=== PATIENT | female | born 1975 | race Caucasian/White ===

== ENCOUNTER 2020-04-30 10:45 | Outpatient (REF) | payer OTHER, SELFPAY ==
[2020-04-30 13:31] LABS: Glucose Urine UA NEG (NEG); Leukocyte Esterase Urine NEG (NEG); Nitrite Urine NEG (NEG); PH 5.5 (5.0-8.0); Specific Gravity - Urine >= 1.030 (1.005-1.025); Urine Blood NEG (NEG); Urine Ketones NEG (NEG); Urine Protein NEG (NEG-TRACE)
[2020-04-30 13:36] LABS: Appearance Urine HAZY; Color Urine YELLOW
[2020-04-30 14:39] LABS: Alanine Aminotransferase 23 U/L (0-31); Albumin Level 3.9 g/dL (3.5-5.0); Alkaline Phosphatase 73 U/L (39-117); Anion Gap 14 (12-20); Aspartate Amino Transferase 20 U/L (5-31); Bilirubin Total 0.5 mg/dL (0.0-1.0); Blood Urea Nitrogen 11 mg/dL (9-16); Calcium 8.7 mg/dL (8.4-10.2); Carbon Dioxide 26 mmol/L (22-29); Chloride 105 mmol/L (96-108); Cholesterol 173 mg/dL; Estimated Glomerular Filt Rate > 60; Glucose Fasting 112 mg/dL (60-99); HDL Cholesterol 43 mg/dL; LDL Cholesterol Calculated 105 mg/dl; Potassium 4.6 mmol/l (3.3-5.1); Sodium 140 mmol/L (135-145); Total Protein 7.5 g/dL (6.5-8.0); Triglycerides 129 mg/dL
[2020-04-30 15:42] LABS: TSH reflex Free T4 1.37 mIU/mL (0.32-4.0)
== END 2020-04-30 10:46 | disposition home or self-care (01) ==
LOC: HO.WFDLDS 10:45
PROVIDERS: Visit Provider Family Medicine
DX: M54.9 Dorsalgia, unspecified (principal); Z00.00 Encounter for general adult medical examination without abnormal findings
CPT/HCPCS: 80053; 80061; 81003; 84443

== ENCOUNTER 2024-04-27 09:13 | Outpatient (AMB) | payer OTHER, SELFPAY ==
--- NOTE | 2024-04-27 09:41 | MHC.PC.OV ---
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 Hx of diabetes. She is on metformin 500mg b.i.d. A1c today 7.9%. Continues taking meloxicam, sertraline, metformin. Has not had an eye exam in about 2 years. Does have an qi specialist. Notes knee pain. Uses meloxicam daily. Has seen orthopedics about a year ago. Reports yeast infection of skin, excess dandruff. Reports recurrent ear infections. HPI Comments History of Present Illness Details Documentation assistance for Jorge Alberto Condon MD, was provided by Misael Monique, Billing Services Manager on 04/27/2024 at 10:45 AM EST. I, Dr. Condon, have read, observed, and verified documentation. FOR[facility]LY [facility], [facility] Surgical History History of ear surgery Family History Mother Breast cancer Gastrointestinal complaints Social History Household Members: Family Housing: House Alcohol intake: never Patient Tobacco Use Status: Never used Tobacco Questionnaire PHQ-9 Over the last 2 weeks, how often have you been bothered by any of the following problems? 1. Little interest or pleasure in doing things: not at all 2. Feeling down, depressed, or hopeless: several days 3. Trouble falling or staying asleep, or sleeping too much: nearly every day 4. Feeling tired or having little energy: nearly every day 5. Poor appetite or overeating: nearly every day 6. Feeling bad about yourself - or that you are a failure or have let yourself or your family down: several days 7. Trouble concentrating on things, such as reading the newspaper or watching television: not at all 8. Moving or speaking so slowly that other people could have noticed. Or the opposite - being so fidgety or restless that you have been moving around a lot more than usual: not at all 9. Thoughts that you would be better off or of hurting yourself in some way: not at all Total score: 11 Source: Developed by Drs. Nate Joseph, Pao Hewitt, Anatoliy Nash and colleagues, with an educational vale from [employer]. Thrive Questionnaire Date Thrive assessed: 04/24/24 I am a: Patient What is your living situation today?: I have a steady place to live Within the past 12 months, did the food you bought not last and you didn't have the money to get more?: Never true Within the past 12 months, did you worry whether your food would run out before you got money to buy more?: Never true Do you have trouble paying for medicines?: No Do you have trouble getting transportation to medical appointments?: No Do you have trouble paying your heating and electricity bill?: Yes Do you have trouble taking care of your child, family member or friend?: No Do you have trouble with day-to-day activities such as bathing, preparing meals, shopping, managing finances, etc.?: No Are you currently unemployed and looking for a job?: Yes Are you interested in more education?: No Please select the resources that you would like help with: None Currently or been in a relationship where the following occur: No concerns reported THRIVE Score: 1 AUDIT C Alcohol Use Questionnaire (AUDIT-C) 1. How often do you have a drink containing alcohol?: Never Total Score: 0 JANIS-7 AMB Questionnaire JANIS-7 Date JANIS - 7 assessed: 08/20/21 Feeling nervous, anxious, or on edge: 1 = Several days Not being able to stop or control worryin = Several days Worrying too much about different things: 1 = Several days Trouble relaxin = Several days Being so restless that it is hard to sit still: 0 = Not at all Becoming easily annoyed or irritable: 3 = Nearly every day Feeling afraid as if something awful might happen: 0 = Not at all Total JANIS-7 score (0-4 normal; 5-9 mild; 10-14 moderate; 15-21 severe): 7 Source: Developed by Drs. Nate Joseph, Pao Hewitt, Anatoliy Nash and colleagues, with an educational vale from [employer]. Review of Systems Const Denies chills, Denies fatigue, Denies fever(s), Denies headache(s) and Denies weakness ENT Denies dizziness and Denies headache(s) Card Denies dyspnea Resp Denies cough, Denies dyspnea, Denies wheezing and Denies other (shortness of breath) Musc Denies numbness and Denies tingling Neuro Denies dizziness, Denies headache(s), Denies numbness, Denies tingling and Denies weakness Psych Denies anxiety and Denies depression Endo Denies fatigue Aller/Immun Denies wheezing Physical exam (Primary Care) Vital Signs: Last Vital Signs Temp 98.3 F 04/27/24 09:47 Pulse 89 04/27/24 09:47 Resp 14 04/27/24 09:47 BP 106/70 04/27/24 09:47 Pulse Ox 94 04/27/24 09:47 Oxygen Delivery Method Room Air 04/27/24 09:47 BMI result Body Mass Index 45.9 Tobacco/Smoking Status: Tobacco use Status Patient Tobacco Use Status Never used Tobacco 04/27/24 09:50 PHQ-9: PHQ-9 Score PHQ-9: Total score 11 04/27/24 10:32 Thrive Assessment: Date of Thrive Assessment Date Thrive assessed 04/24/24 04/27/24 09:50 Currently or been in a relationship where the following occur: No concerns reported Const General: well developed; No acute distress Nutritional Appearance: well nourished Orientation/consciousness: patient oriented x3 HENMT Head: Yes normocephalic and Yes atraumatic Eyes General: appearance normal, both eyes and all related structures Pupils: Equal, round and reactive pupils present EOM: EOMs intact bilaterally Resp Effort & Inspection: normal respiratory effort Neuro General: patient oriented x3 and gait normal Cranial nerves: Yes Equal, round and reactive pupils present Psych Affect: normal affect Coding Level of Care Code Est Pt Level 4 (54922) Diagnoses Diabetes type 2, controlled E11.9 Morbid obesity E66.01 Knee pain M25.569 Yeast infection of the skin B37.2 Ear discomfort H92.09 History of recurrent ear infection Z86.69 Assessment & Plan Assessment & Plan (1) Diabetes type 2, controlled: Code(s): E11.9 - Type 2 diabetes mellitus without complications Category: Medical Plan: Poorly?controlled?diabetes.??A1c?7.9%.??Goal?is?less?than?7% Continue?metformin.??She?gets?stomach?discomfort?when?she?takes?more?than?current?dose. Start?Ozempic Will?follow-up?in?1?month Advise?she?contact?her?welding operator?for?diabetic?eye?exam?as?she?is?overdue (2) Morbid obesity: Code(s): E66.01 - Morbid (severe) obesity due to excess calories Category: Medical Plan: Encouraged?weight?loss (3) Knee pain: Code(s): M25.569 - Pain in unspecified knee Category: Medical Plan: Left?knee?pain. Taking?meloxicam?and?has?seen?new?[facility]?in?the?past Continue?meloxicam Ice/heat Physical?therapy?ordered Referred?back?to?new?[facility] Encouraged?weight?loss (4) Yeast infection of the skin: Code(s): B37.2 - Candidiasis of skin and nail Category: Medical Plan: Yeast?infection?under?pannus?of?abdomen?and?also?scalp Can?use?clotrimazole?and?Nizoral?shampoo Avoid?excess?moisture?under?pannus Controlled?blood?sugar (5) Ear discomfort: Code(s): H92.09 - Otalgia, unspecified ear Category: Medical Plan: History?of?left?ear?surgery?and?otosclerosis Possible?clear?effusion?but?no?erythema?or?pus Patient?also?notes?some?chest?congestion?and?has?some?secretions?sounds.??Likely?allergy?and?I?encouraged?her?to?try?a?daytime?antihistamine?and?also?nasal?saline?to?improve?drainage?from?behind?TMs (6) History of recurrent ear infection: Code(s): Z86.69 - Personal history of other diseases of the nervous system and sense organs Category: Medical Plan: As?above. If?not?improving?or?gets?an?ear?infection?again?we?will?refer?her?back?to?ENT Orders: Orders Comprehensive Marceline. Panel Fast Today Z00.00 - Encounter for general adult medical examination without abnormal findings Microalbumin, Random (w Creat) Today I10 - Essential (primary) hypertension PT Evaluation and Treatment Today M25.569 - Pain in unspecified knee Complete Blood Count Auto Diff Today Z00.00 - Encounter for general adult medical examination without abnormal findings Lipid Panel Today Z00.00 - Encounter for general adult medical examination without abnormal findings UA and rflx microscopic Today Z00.00 - Encounter for general adult medical examination without abnormal findings TSH reflex Free T4 Today Z00.00 - Encounter for general adult medical examination without abnormal findings Referrals Orthopedics Referral M25.569 - Pain in unspecified knee Medications: New semaglutide (Ozempic) for 4 weeks 0.25 mg (0.368 mL) subcut QWEEK 28 days 1.472 mL 3RF E11.65 - Type 2 diabetes mellitus with hyperglycemia, E11.9 - Type 2 diabetes mellitus without complications ketoconazole 1% (Nizoral A-D) 1 appl topical 2XW 14 days 125 mL 0RF clotrimazole 1% 1 appl topical BID 2 weeks 60 grams 1RF
[2024-04-27 09:47] VITALS: BP 106/70; PULSE 89; RESP 14; TEMP 36.8; O2SAT 94; BMI 45.9
== END 2024-04-27 10:53 | disposition home or self-care (01) ==
LOC: HO.HMCFM 09:14
PROVIDERS: PCP Family Medicine; Visit Provider Family Medicine
DX: E11.9 Type 2 diabetes mellitus without complications (principal); E66.01 Morbid (severe) obesity due to excess calories; Z68.42 Body mass index [BMI] 45.0-49.9, adult; M25.562 Pain in left knee; B37.2 Candidiasis of skin and nail; H92.02 Otalgia, left ear; Z86.69 Personal history of other diseases of the nervous system and sense organs

== ENCOUNTER → 2024-04-27 09:13 | Outpatient (BNVA) | payer OTHER, SELFPAY | PROVIDERS: PCP Family Medicine; Visit Provider Family Medicine | DX: E11.9 Type 2 diabetes mellitus without complications (principal); E66.01 Morbid (severe) obesity due to excess calories; B37.2 Candidiasis of skin and nail; M25.562 Pain in left knee; H92.02 Otalgia, left ear; Z86.69 Personal history of other diseases of the nervous system and sense organs | CPT/HCPCS: 96127; 99212 ==

== ENCOUNTER 2024-04-27 11:14 | Outpatient (REF) | payer OTHER, SELFPAY ==
[2024-04-27 14:15] LABS: Appearance Urine Clear; Color Urine Yellow; Glucose Urine UA Negative (Negative); Leukocyte Esterase Urine Negative (Negative); Nitrite Urine Negative (Negative); Urine Blood Negative (Negative); Urine Ketones Negative (Negative); Urine Protein Negative (Neg-Trace)
[2024-04-27 14:56] LABS: MANUAL DIFF FLAG NO
[2024-04-27 15:03] LABS: Creatinine Urine 172.12 mg/dL; Microalbum/Creatinine Ratio Ur 9.2 ug/mg cr (<30)
[2024-04-27 15:03] LABS: Basophils Absolute Auto 0.1 X10*3/uL (0.0-0.2); Basophils Percent Auto 0.6 % (0-2); Eosinophils Absolute Auto 0.1 X10*3/uL (0.0-0.4); Eosinophils Percent Auto 1.1 % (0-4); Hematocrit 41.9 % (37.0-47.0); Hemoglobin 13.6 g/dl (12.0-16.0); Imm Gran Abs Auto 0.03 X10*3/uL (0.00-0.03); Imm Gran Pct Auto 0.3 % (0.0-0.4); Lymphocytes Absolute Auto 2.7 X10*3/uL (1.2-4.9); Mean Corpuscular HGB Conc 32.5 g/dl (31.0-35.0); Mean Corpuscular Hemoglobin 27.2 pg (27.0-33.0); Mean Corpuscular Volume 83.8 fL (80.0-98.0); Mean Platelet Volume 10.9 fL (9.4-12.3); Monocytes Absolute Auto 0.7 X10*3/uL (0.1-1.2); Neutrophils Absolute Auto 6.8 x10*3/uL (2.0-8.3); Platelet Count 317 X10*3/uL (160-400); Red Cell Distribution Width 14.1 % (11.0-16.0); White Blood Count 10.4 X10*3/uL (4.8-10.8)
[2024-04-27 15:19] LABS: Alanine Aminotransferase 31 U/L (0-31); Albumin Level 4.1 g/dL (3.5-5.0); Alkaline Phosphatase 70 U/L (39-117); Anion Gap 12 (12-20); Aspartate Amino Transferase 30 U/L (5-31); Bilirubin Total 0.4 mg/dL (0.0-1.0); Blood Urea Nitrogen 12 mg/dL (9-16); Calcium 9.3 mg/dL (8.4-10.2); Carbon Dioxide 24 mmol/L (22-29); Chloride 107 mmol/L (96-108); Cholesterol 195 mg/dL (<200); Estimated Glomerular Filt Rate > 60; Glucose Fasting 152 mg/dL (60-99); HDL Cholesterol 44 mg/dL (>40); LDL Cholesterol Calculated 116 mg/dL (<100); Potassium 4.2 mmol/L (3.3-5.1); Sodium 139 mmol/L (135-145); Triglycerides 177 mg/dL (<150)
[2024-04-27 15:37] LABS: TSH reflex Free T4 1.95 uIU/mL (0.32-4.0)
== END 2024-04-27 11:15 | disposition home or self-care (01) ==
LOC: HO.WFDLDS 11:14
PROVIDERS: Visit Provider Family Medicine
DX: Z00.00 Encounter for general adult medical examination without abnormal findings (principal); I10 Essential (primary) hypertension
CPT/HCPCS: 36415; 80053; 80061; 81003; 82043; 82570; 84443; 85025

== ENCOUNTER 2024-07-05 09:31 | Outpatient (AMB) | payer OTHER, SELFPAY ==
--- NOTE | 2024-07-05 09:36 | MHC.PC.OV ---
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 Is last menstrual period known: No Post menopausal: No Patient : No Allergies No Known Allergies Allergy (Verified 07/05/24 09:42) Medication List - Last Reconciled 07/05/24 by Jorge Alberto Condon MD clotrimazole 1% 1 appl topical BID 2 weeks glipizide ER 10 mg PO QAM 30 days meloxicam 15 mg PO DAILY 30 days metformin ER 500 mg PO BID 90 days sertraline 150 mg (1.5 x 100 mg) PO DAILY 30 days tirzepatide (weight loss) (Zepbound) 2.5 mg (0.5 mL) subcut QWEEK 28 days Tobacco use date assessed: 07/05/24 Dental Screening Dental Screen Date: 07/05/24 Did you have a dental visit in the last 12 months?: Yes Did you have a dental problem in the last 6 months where you did not have access to dental care?: No Was dental information given to patient?: Patient has dentist HPI f/u diabetes, chronic conditions, labs HPI Details 49 y/o female presents to f/u diabetes, chronic conditions. A1c today 07/05/24 8.0%. She notes she had been unable to get her ozempic. She states she had recently changed her diet. Notes she had an eye exam this year which was fine. She notes [facility] had made a diagnosis of sleep apnea for her. Notes ongoing knee pain. [facility] Surgical History History of ear surgery Family History Mother Breast cancer Gastrointestinal complaints Social History Household Members: Family Housing: House Alcohol intake: never Patient Tobacco Use Status: Never used Tobacco e-Cigarette/Vaping Use: Never Used Second Hand Smoke Exposure: No service: No Current occupational status: employed Current occupational exposures/hazards: Yes Cognitive needs: No Hearing needs: Yes Vision needs: Yes Questionnaire PHQ-9 Over the last 2 weeks, how often have you been bothered by any of the following problems? 1. Little interest or pleasure in doing things: several days 2. Feeling down, depressed, or hopeless: several days 3. Trouble falling or staying asleep, or sleeping too much: nearly every day 4. Feeling tired or having little energy: nearly every day 5. Poor appetite or overeating: not at all 6. Feeling bad about yourself - or that you are a failure or have let yourself or your family down: not at all 7. Trouble concentrating on things, such as reading the newspaper or watching television: not at all 8. Moving or speaking so slowly that other people could have noticed. Or the opposite - being so fidgety or restless that you have been moving around a lot more than usual: not at all 9. Thoughts that you would be better off or of hurting yourself in some way: not at all Total score: 8 Source: Developed by Drs. Nate Joseph, Pao Hewitt, Anatoliy Nash and colleagues, with an educational vale from [employer]. Thrive Questionnaire Date Thrive assessed: 04/24/24 I am a: Patient What is your living situation today?: I have a steady place to live Within the past 12 months, did the food you bought not last and you didn't have the money to get more?: Never true Within the past 12 months, did you worry whether your food would run out before you got money to buy more?: Never true Do you have trouble paying for medicines?: Yes Do you have trouble getting transportation to medical appointments?: No Do you have trouble paying your heating and electricity bill?: Yes Do you have trouble taking care of your child, family member or friend?: No Do you have trouble with day-to-day activities such as bathing, preparing meals, shopping, managing finances, etc.?: No Are you currently unemployed and looking for a job?: No Are you interested in more education?: No Please select the resources that you would like help with: None Currently or been in a relationship where the following occur: No concerns reported THRIVE Score: 1 AUDIT C Alcohol Use Questionnaire (AUDIT-C) 1. How often do you have a drink containing alcohol?: Never Total Score: 0 JANIS-7 AMB Questionnaire JANIS-7 Date JANIS - 7 assessed: 08/20/21 Feeling nervous, anxious, or on edge: 0 = Not at all Not being able to stop or control worryin = Several days Worrying too much about different things: 1 = Several days Trouble relaxin = Several days Being so restless that it is hard to sit still: 0 = Not at all Becoming easily annoyed or irritable: 1 = Several days Feeling afraid as if something awful might happen: 0 = Not at all Total JANIS-7 score (0-4 normal; 5-9 mild; 10-14 moderate; 15-21 severe): 4 Source: Developed by Drs. Nate Joseph, Pao Hewitt, Anatoliy Nash and colleagues, with an educational vale from [employer]. Review of Systems Const Denies chills, Denies fatigue, Denies fever(s), Denies headache(s) and Denies weakness ENT Denies dizziness and Denies headache(s) Card Denies dyspnea Resp Denies cough, Denies dyspnea, Denies wheezing and Denies other (shortness of breath) Musc Denies numbness and Denies tingling Neuro Denies dizziness, Denies headache(s), Denies numbness, Denies tingling and Denies weakness Psych Denies anxiety and Denies depression Endo Denies fatigue Aller/Immun Denies wheezing Physical exam (Primary Care) Vital Signs: Last Vital Signs Temp 98.0 F 07/05/24 09:44 Pulse 84 07/05/24 09:44 Resp 16 07/05/24 09:44 BP 127/84 07/05/24 09:44 Pulse Ox 95 07/05/24 09:44 Oxygen Delivery Method Room Air 07/05/24 09:44 BMI result Body Mass Index 45.1 Tobacco/Smoking Status: Tobacco use Status Tobacco use date assessed 07/05/24 07/05/24 09:47 Patient Tobacco Use Status Never used Tobacco 07/05/24 09:38 e-Cigarette/Vaping Use Never Used 07/05/24 09:47 PHQ-9: PHQ-9 Score PHQ-9: Total score 8 07/05/24 10:16 Thrive Assessment: Date of Thrive Assessment Date Thrive assessed 04/24/24 07/05/24 09:38 Currently or been in a relationship where the following occur: No concerns reported Const General: well developed; No acute distress Nutritional Appearance: well nourished and obese morbidly obese Orientation/consciousness: patient oriented x3 HENMT Head: Yes normocephalic and Yes atraumatic Eyes General: appearance normal, both eyes and all related structures Pupils: Equal, round and reactive pupils present EOM: EOMs intact bilaterally Resp Effort & Inspection: normal respiratory effort Neuro General: patient oriented x3 and gait normal Cranial nerves: Yes Equal, round and reactive pupils present Psych Affect: normal affect Coding Level of Care Code Est Pt Level 4 (77032) Diagnoses Diabetes type 2, controlled E11.9 Sleep apnea G47.30 Knee pain M25.569 Assessment & Plan Assessment & Plan (1) Diabetes type 2, controlled: Code(s): E11.9 - Type 2 diabetes mellitus without complications Category: Medical Plan: A1c?has?climbed?from?7.9%?to?8.0%.??Goal?is?less?than?7.0% She?was?unable?to?get?Ozempic?improved. Patient?notes?that?she?also?has?obstructive?sleep?apnea.??This?was?diagnosed[facility]at[facility]. Will?try?is?a?found?which?may?be?more?except?full?to?her?insurance?and?will?include?diabetes?and?obstructive?sleep?apnea?as?indications. Risks/benefits?discussed However,?will?also?send?script?for?glipizide?which?he?will?fill?if?she?is?unable?get?of?medication.??He?will?continue?metformin?as?prescribed. (2) Sleep apnea: Code(s): G47.30 - Sleep apnea, unspecified Category: Medical Plan: Diagnosed?at[facility] She?is?not?currently?using?CPAP?but?says?she?may?begin?this?again (3) Knee pain: Code(s): M25.569 - Pain in unspecified knee Category: Medical Plan: Patient?had?steroid?injection?which?helped?open?past?3?months.??She?is?noticing?that?the?discomfort?is?returning Advised?her?to?call?ortho?for?a?follow-up. Medications: New tirzepatide (weight loss) (Zepbound) for 4 weeks 2.5 mg (0.5 mL) subcut QWEEK 28 days 2 mL 3RF E11.9 - Type 2 diabetes mellitus without complications, G47.30 - Sleep apnea, unspecified glipizide ER 10 mg PO QAM 30 days 30 tabs 3RF Discontinued semaglutide (Ozempic) for 4 weeks Discontinued Reason: Doctor's Order 0.25 mg (0.368 mL) subcut QWEEK 28 days 1.472 mL 3RF E11.65 - Type 2 diabetes mellitus with hyperglycemia, E11.9 - Type 2 diabetes mellitus without complications
[2024-07-05 09:44] VITALS: BP 127/84; PULSE 84; RESP 16; TEMP 36.7; O2SAT 95; BMI 45.1
--- OUTSIDE RECORDS SUMMARY | 2024-07-05 10:05 | XMS_ITS | Data Portability ---
Author Organization [facility], [address] Address [address] [place] [address] Assessment No assessment recorded. Plan of Treatment Reminders Order Date Submit Date Provider Last Modified By Organization Details Last Modified Time Details Appointments None recorded. Lab rapid flu (A+B) 2023 024 [email or web address] 5 [facility] [address], [address] [place], [address], 4 10:20:04 SARS CoV 2 (COVID-19) Ag, QL, IA, upper respiratory specimen 2023 024 [email or web address] 5 [facility] [address], [address] [place], [address], 4 10:20:05 Referral None recorded. Procedures None recorded. Surgeries None recorded. Imaging XR, ankle, 3 or more view 2023 024 [email or web address] [facility], [address] [place], [address], 4 10:36:01 Medication Orders amoxicillin 875 mg-potassiu m clavulanate 125 mg tablet 2023 024 [facility] #1111, [address] [place], [address], 4 09:36:24 albuterol sulfate HFA 90 mcg/actuati on aerosol inhaler 2023 024 [facility]acy #1111, [address] [place], [address], 4 09:36:19 benzonatate 100 mg capsule 2023 024 [facility]armacy #1111, [address] [place], [address], 4 09:36:35 prednisone 20 mg tablet 2023 024 [facility] [address] [place], [address], 4 09:36:41 Patient TargetsNo targets recorded. Patient Instructions Encounter Date Encounter Id Patient Instructions Last Modified By Organization Details Last Modified Time 07/07/2023 [id number] Acute Sinusitis: Care Instructions [email or web address] Not available 07/07/2023 10:20:01 bronchitis: care instructions [email or web address] Not available 07/07/2023 10:20:01 wheezing or bronchoconstricti on: care instructions [email or web address] Not available 07/07/2023 10:20:01 Rest. Drink plenty of fluids. Take the antibiotic, prednisone, cough medication and use the inhaler as prescribed. Take an over the counter probiotic daily while taking the antibiotic. See printed instructions. Follow-up with your doctor as soon as possible. Seek Emergency Medical evaluation for any worsening symptoms, particularly for high fever, shaking chills, severe headache, rash, stiff neck, chest pain not associated with breathing, shortness of breath, severe diarrhea. [email or web address] Not available 07/07/2023 10:21:49 Reason for Referral None Reported. Results Created Date Observation Date Name Description Value Unit Range Abnormal Flag Note LastModifiedBy Organization Detail LastModifiedTime 07/07/19 24 07/07/2023 SARS CoV 2 (COVI D-19) Ag, QL, IA, upper respi rator y speci men Unknown Analyte negati ve Not Available [address] [facility], [place], [address], 07/07/2023 09:26:13 07/07/19 24 07/07/2023 SARS CoV 2 (COVI D-19) Ag, QL, IA, upper respi rator y speci men Unknown Analyte yes Not Available [address] [address] [place], [address], 07/07/2023 09:26:13 07/07/19 24 07/07/2023 rapid flu (A+B) Unknown Analyte negati ve Not Available [address] [place], [address], 07/07/2023 09:25:34 07/07/19 24 07/07/2023 rapid flu (A+B) Unknown Analyte negati ve Not Available [address] [place], [address], 07/07/2023 09:25:34 07/07/19 24 07/07/2023 rapid flu (A+B) Unknown Analyte yes Not Available [address] [place] [address] [address] [place], [address], 07/07/2023 09:25:34 11/19/19 24 11/19/2023 XR, ankle , 3 or more view No observ ation record ed. [email or web address] [facility] [address] [facility] [place], [address], 11/19/2023 10:34:01 Result Notes None recorded. Problems Name Problem SNOMED Code Status Onset Date Resolution Date Notes Provider Name and Address Organization Details Recorded Time Polycystic ovary syndrome 374367601 Active Linda luu PA - [facility] 4 09:24:48 Arthritis 0550929 Active Linda luu PA - [facility] 4 09:25:00 Sprain of right ankle 3118966270644 9105 Active 2023 Jake Bryant [employer] [address] [place], [address] , PA - [facility] 4 09:54:52 Problem Notes None recorded. Procedures Surgical History None recorded. Imaging Results Imaging Date Name Status LastModified by Organiz ation Details LastModified Time 11/19/2023 XR, ankle, 3 or more view completed [facility] [address], [place], [address], 11/19/2023 10:34:01 Procedure Notes None recorded. Medical Equipment None Reported. Allergies No known drug allergies Medications Name Sig Start Date Stop Date Status Note LastModified by Organization Details LastModified Time meloxicam 15 mg tablet Take 1 tablet every day by oral route. active Not Available Not Available No t Available prednisone 20 mg tablet Take 2 tablets every day by oral route for 5 days. 11/18 completed Not Available Not Available Not Available albuterol sulfate HFA 90 mcg/actuati on aerosol inhaler Inhale 2 puffs every 4 hours by inhalatio n route as needed. 11/18 completed Not Available Not Available Not Available sertraline active Not Available Not Av ailable Not Available metformin active Not Available Not Sophie ilable Not Available Vitals Date Recorded Body height Body mass index (BMI) Body weight Oxygen saturation Oxygen saturation in Arterial blood by Pulse oximetry Heart rate Respiratory rate Body temperature Systolic blood pressure Diastolic blood pressure Provider Name and Address Organization Details Last Updated DateTime 4 157.48 cm 45.7 kg/m2 792006. 09 g 97 % 97 % 70 /min 18 /min 97.9 [degF] 139 mm[Hg] 79 mm[Hg] Linda Galdamez PA - [facility] 4 09:21:19 Date Recorded Body height Body mass index (BMI) Body weight Oxygen saturation Oxygen saturation in Arterial blood by Pulse oximetry Heart rate Respiratory rate Body temperature Systolic blood pressure Diastolic blood pressure Provider Name and Address Organization Details Last Updated DateTime 4 157.48 cm 45.7 kg/m2 696752. 09 g 96 % 96 % 82 /min 18 /min 98 [degF] 118 mm[Hg] 74 mm[Hg] Carolann Abarca PA - [facility] 4 09:34:25 Social History Question Answer Notes LastModified by Organizat ion Details LastModified Time Tobacco Smoking Status Never Smoker Linda luu PA - [facility] 07/07/2023 09:25:18 What Is Your Level Of Alcohol Consumption? None [email or web address] Information not available 07/07/2023 Are You Currently Employed? Yes Information not available 11/19/2023 Have You Had A Flu Shot This Season? Yes [email or web address] Information not available 07/07/2023 Have You Had Direct Contact, Or Contact During Intimacy, With Monkeypox Rash, Scabs, Or Body Fluids From A Person With Monkeypox? No [email or web address] Information not available 07/07/2023 What Was The Date Of Your Most Recent Tobacco Screening? 07/07/2023 [email or web address] Information not available 07/07/2023 What Is Your Relationship Status? Single Information not available 11/19/2023 Do You Use Any Illicit Or Recreational Drugs? No Information not available 07/07/2023 Have You Recently Traveled Abroad? No Information not available 07/07/2023 Are You Currently In School? No Information not available 11/19/2023 Do You Or Have You Ever Used Any Other Forms Of Tobacco Or Nicotine? No Information not available 11/19/2023 Sex: Unknown Functional Status None recorded. Mental Status None recorded. Family History Nothing Reported. Medical History No medical history recorded. Gynecological History Statement/Question Response Date of LMP 09/08/2023 Is there any chance of ? Unsure LMP N/A Obstetrics History GPAL:G 0 P 0 0 0 0 Past Encounters Encounter ID Performer Location Encounter Start Date Encounter Closed Date Diagnosis/Indication Diagnosis SNOMED-CT Code Diagnosis ICD10 Code Diagnosis Note [id number] [address] [place] [address] 03/01/2016 19:52:36 03/01/2016 20:59:43 [id number] [address] [place] [address] 10/08/2019 15:28:33 10/08/2019 16:44:50 [id number] [address] [place] [address] 10/06/2021 12:25:33 10/06/2021 14:36:48 [id number] [address] [facility], [place] [address] 06/10/2015 17:44:58 06/10/2015 18:31:50 [id number] [address] [facility], [place] [address] 12/24/2020 08:31:39 12/24/2020 09:51:00 [id number] [address] [facility], [place] [address] 10/19/2015 18:57:29 10/19/2015 19:33:38 [id number] [address] [facility], [place] [address] 06/15/2019 08:37:06 06/15/2019 10:11:03 [id number] [address]la[address] [facility], [place] [address] 12/21/2021 08:10:40 12/21/2021 09:37:05 [id number] [address] [facility], [place] [address] 12/19/2015 09:38:29 12/19/2015 10:13:24 [id number] Maureen Lamar MD [address] [place] [address] 07/07/2023 08:54:49 07/07/2023 10:24:52 Acute sinusitis 42193349 J01.90 Acute bron chitis with bronchospasm 99097178 J20.9 [id number] Jake Bryant NP [address] [facility], [place] [address] 11/19/2023 09:14:44 11/19/2023 10:36:01 Sprain of right ankle [id number] 2529954 S93.401A Based on your presentati on and exam, you are diagnosed with an ankle sprain. The x-ray did not show any acute fracture but we will send it to the radiologis t to review. If they see something that I didn't identify, you will be contacted by our office. My suggestion s for this condition include:1. Ice2. Elevate3. Rest4. Make sure you stretch your ankle regularly for the next 1-2 weeks5. Take Ibuprofen or Tylenol if you do not have any allergies to these medication s. If you take a blood thinner you should not take NSAIDS like Ibuprofen. 6. After 3 days of icing - I would switch to heat - this will help reabsorb any bruising or swelling. If you are still having pain after 7-10 days, I would suggest that you follow up with our office again or schedule and appointmen t with an orthopedis t. I would be seen more urgently if you develop any of the following symptoms.1 . Numbness2. Cold Extremitie s3. Worsening Pain4. Skin Redness5. Calf Swelling Thank you for using [employer] , please contact our office if you have any questions or concerns. Health Concerns Section Related Observation LastModified by Organization Detai ls LastModified Time None Recorded Concern Status LastModified by Organization Details LastModified Time None Recorded Advance Directives Directive None Recorded Payers Encounter Date Sequence Insurance Name Policy Number Policy Ly Covered Member ID Ly Member ID Guarantor Name 12/24/2020 1 [facility] [employer] (MEDICAID REPLACEMENT - HMO) PATRICIA Knowles [id number] Sophia Knowles 10/06/2021 1 [facility] [employer] - [employer] (MEDICAID REPLACEMENT - HMO) PATRICIA Knowles [id number] Sophia Knowles 12/21/2021 1 [facility] - [employer] (MEDICAID REPLACEMENT - HMO) PATRICIA Knowles [id number] Sophia Knowles 07/07/2023 1 [facility] [employer] - [employer] (MEDICAID REPLACEMENT - HMO) PATRICIA Knowles [id number] Sophia Knowles 11/19/2023 1 [facility] - [employer] (MEDICAID REPLACEMENT - HMO) PATRICIA Knowles [id number] Sophia Knowles Notes Date Note Type Note Provider Name and Address Organization Details Recorded Time 4 text/html CoughReported bypatient.source of patient informationInformation obtained from patient; Patient arrived at Urgent Care ambulatory Quality:dry and wet Severity:moderate Duration:constant; 10 days Timing:constant Context:non-smoker Associated Symptoms:no fever; no chills; no heartburn; no nausea; no vomiting; no edema; no agitation; no wheezing;post nasal drip; Bilateral rib and posterior chest pain with cough only.Notes:48 year old female presenting for evaluation of nasal congestion, runny nose, post nasal drip, sinus pain and pressure, bilateral ear pain, occasionally productive cough, occasional shortness of breath and body aches for about 1.5 weeks. No fever or chills. She has bilateral rib and posterior chest pain with cough only. No generalized headache, rash or stiff neck. No sore throat or GI symptoms. No prior hx of asthma or wheezing. She occasionally has some stress incontinence of urine when she coughs hard but no other urinary symptoms. Maureen Lamar MD [address] [place], [address], [place] 07/13/2023 09:14:36 4 text/html Foot/Ankle UCReported bypatient.source of patient informationInformation obtained from patient; Patient arrived at Urgent Care ambulatory; learning styles: auditory; twisted ankle 5 days ago. painful weight bearing , swelling. Location:right; ankle Probleminjury; swelling Severity:moderate Duration:5 days Context:twisting Associated Symptoms:no weakness; no numbness; no tingling; no warmth; no ecchymosis;swelling Aggravating factors:standing; walking Alleviating factors:elevation; ice; limited weight bearing; rest Assistive devicesbrace; Ronnell bandage Previous InjuryNo prior injury to affected body part Previous Treatmentnone Prior Imaging:none Jake Bryant NP [address] [place], [address], [place] 11/19/2023 11:01:19 OBGyn Episode No OBEpisode recorded.
== END 2024-07-05 10:31 | disposition home or self-care (01) ==
PROVIDERS: PCP Family Medicine; Visit Provider Family Medicine
DX: E11.9 Type 2 diabetes mellitus without complications (principal); G47.30 Sleep apnea, unspecified; M25.569 Pain in unspecified knee

== ENCOUNTER → 2024-07-05 09:31 | Outpatient (BNVA) | payer OTHER, SELFPAY | PROVIDERS: PCP Family Medicine; Visit Provider Family Medicine | DX: E11.9 Type 2 diabetes mellitus without complications (principal); G47.30 Sleep apnea, unspecified; Z79.899 Other long term (current) drug therapy | CPT/HCPCS: 96127; 99212 ==

== ENCOUNTER 2024-10-04 09:10 | Outpatient (AMB) | payer OTHER, SELFPAY ==
--- NOTE | 2024-10-04 09:51 | A.OFFPC_ITS ---
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 A1c today 8.7%. Prior A1c 8.1%. She is on metformin 500mg b.i.d. She notes she had been unable to get her Zepbound. She has not started her glipizide yet. Pt reports knee pain. Has been using meloxicam, tylenol for relief. She reports chest pain at night. She describes the pain around her breasts and states symptoms are intermittent. Denies pain with exertion. She has complaints of L hand pain. [facility] Surgical History History of ear surgery Family History Mother Breast cancer Gastrointestinal complaints Social History Household Members: Family Housing: House Alcohol intake: never Patient Tobacco Use Status: Never used Tobacco e-Cigarette/Vaping Use: Never Used Second Hand Smoke Exposure: No service: No Current occupational status: employed Current occupational exposures/hazards: Yes Cognitive needs: No Hearing needs: Yes Vision needs: Yes Questionnaire Thrive Questionnaire Date Thrive assessed: 07/05/24 I am a: Patient What is your living situation today?: I have a steady place to live Within the past 12 months, did the food you bought not last and you didn't have the money to get more?: Never true Within the past 12 months, did you worry whether your food would run out before you got money to buy more?: Never true Do you have trouble paying for medicines?: Yes Do you have trouble getting transportation to medical appointments?: No Do you have trouble paying your heating and electricity bill?: Yes Do you have trouble taking care of your child, family member or friend?: No Do you have trouble with day-to-day activities such as bathing, preparing meals, shopping, managing finances, etc.?: No Are you currently unemployed and looking for a job?: No Are you interested in more education?: No Please select the resources that you would like help with: None Currently or been in a relationship where the following occur: No concerns reported THRIVE Score: 1 JANIS-7 AMB Questionnaire JANIS-7 Date JANIS - 7 assessed: 08/20/21 Source: Developed by Drs. Nate Joseph, Pao Hewitt, Anatoliy Nash and colleagues, with an educational vale from [employer]. Review of Systems Const Denies chills, Denies fatigue, Denies fever(s), Denies headache(s) and Denies weakness ENT Denies dizziness and Denies headache(s) Card Denies dyspnea Resp Denies cough, Denies dyspnea, Denies wheezing and Denies other (shortness of breath) Musc Denies numbness and Denies tingling Neuro Denies dizziness, Denies headache(s), Denies numbness, Denies tingling and Denies weakness Psych Denies anxiety and Denies depression Endo Denies fatigue Aller/Immun Denies wheezing Physical exam (Primary Care) Vital Signs: Last Vital Signs Temp 97.9 F 10/04/24 09:56 Pulse 93 10/04/24 09:56 Resp 14 10/04/24 09:56 BP 122/70 10/04/24 09:56 Pulse Ox 95 10/04/24 09:56 Oxygen Delivery Method Room Air 10/04/24 09:56 BMI result Body Mass Index 45.6 Tobacco/Smoking Status: Tobacco use Status Tobacco use date assessed 07/05/24 10/04/24 09:52 Patient Tobacco Use Status Never used Tobacco 10/04/24 09:52 e-Cigarette/Vaping Use Never Used 10/04/24 09:52 Thrive Assessment: Date of Thrive Assessment Date Thrive assessed 07/05/24 10/04/24 09:52 Currently or been in a relationship where the following occur: No concerns reported Const General: well developed; No acute distress Nutritional Appearance: well nourished and obese morbidly obese Orientation/consciousness: patient oriented x3 [facility] Head: Yes normocephalic and Yes atraumatic Eyes General: appearance normal, both eyes and all related structures Pupils: Equal, round and reactive pupils present EOM: EOMs intact bilaterally Resp Effort & Inspection: normal respiratory effort Auscultation: clear to auscultation bilaterally Cardio Rate: regular rate Rhythm: regular rhythm Heart sounds: S1 normal heart sound present, S2 normal heart sound present, no gallops, no murmurs and no rubs Neuro General: patient oriented x3 and gait normal Cranial nerves: Yes Equal, round and reactive pupils present Psych Affect: normal affect Coding Level of Care Code Est Pt Level 5 (13705) Diagnoses Uncontrolled diabetes mellitus with hyperglycemia E11.65 Morbid obesity E66.01 Knee pain M25.569 Sleep apnea G47.30 Chest pain R07.9 Hand pain, left M79.642 Assessment & Plan Assessment & Plan (1) Uncontrolled diabetes mellitus with hyperglycemia: Code(s): E11.65 - Type 2 diabetes mellitus with hyperglycemia Category: Medical Plan: A1c?has?climbed.??Uncontrolled?diabetes.??Her?A1c?goal?is?less?than?7% Patient?did?not?get Zepbound and?did?not?pick?up?glipizide?as?she?seem?to?believe?that?her?insurance?was?will ing?to?approve?it. Plan?had?been?to?get?glipizide?if?unable?get?set?lb. She?will?continue?metformin?and?she?will?add?glipizide Keep?working?diet?low?in?sugars?and?starches Work?on?weight?loss (2) Morbid obesity: Code(s): E66.01 - Morbid (severe) obesity due to excess calories Category: Medical Plan: Patient?was?unable?to?get GLP?1?medication. Referred?to?nurse?navigator?for nutrition?counseling Encouraged?exercise?as?tolerated?and?weight?loss (3) Knee pain: Code(s): M25.569 - Pain in unspecified knee Category: Medical Plan: Ongoing?knee?pain. She?is?taking?meloxicam?and?can?also?use?some?Tylenol Ice/heat Had?referred?her?to?physical?therapy?but?she?has?not?had?time?to?go?yet.??Encour aged?her?to?schedule?this She?has?seen?ortho - also?recommended?physical?therapy?and?injection?therapy. (4) Sleep apnea: Code(s): G47.30 - Sleep apnea, unspecified Category: Medical Plan: History?of?sleep?apnea. Untreated.??She?is?not?using?a?CPAP?machine?as?she?has?not?passed. No?recent?testing?or?calibration/titration. Referred?back?to?Sleep?Medicine (5) Chest pain: Code(s): R07.9 - Chest pain, unspecified Category: Medical Plan: Patient?has?noted?a?few?episodes?of?nonexertional?chest?pain?when?sleeping. Episodes?do?not?happen?with?exercise?or?exertion.??She?does?not?have?any diaphoresis,?shortness?of?breath, dizziness?or?other?concerning?symptoms. Also?has?history?of?sleep?apnea?which?is?untreated. EKG?today shows?normal?sinus?rhythm,?normal?axis,?no?hypertrophy,?isolated?Q- wave?at?lead?III without?continuous?significant?Q-wave, no?ST-T-wave?changes. Checking?echocardiogram Referred?to?Sleep?Medicine?as?above (6) Hand pain, left: Code(s): M79.642 - Pain in left hand Category: Medical Plan: Swelling?and?discomfort?at?radial?aspect?of?base?L?thumb. X-ray?ordered?and?referred?to?hand?surgeon?at?patient?request.
[2024-10-04 09:56] VITALS: BP 122/70; PULSE 93; RESP 14; TEMP 36.6; O2SAT 95; BMI 45.6
--- OUTSIDE RECORDS SUMMARY | 2024-10-04 09:57 | XMS_ITS ---
Author Organization [facility] Address [address] [place] [address] Care Team Providers Care Shochet Name Role Phone adalberto Zimmerman Primary Care Provider ANGELIKA Kirkland [phone] REASON FOR VISIT balance Encounters Encounter Location Date Provider Diagnosis [facility] [address] [place] [address] 10/18/2023 ANGELIKA ZIMMERMAN PLAN OF TREATMENT No Information Progress Notes * MATT MELLOIDOB: (48 yo F)Acc No.[id number]:10/18/2023 Patient:??MATT MELLO :1975?Age:48 Y?Sex:Fe male Address:[address] [place] [address] * true * Date:??
--- OUTSIDE RECORDS SUMMARY | 2024-10-04 09:57 | XMS_ITS ---
Author Organization [facility] Address [address] [place] [address] Care Team Providers Care Favor Maker Name Role Phone adalberto Justin Primary Care Provider Unavailabl e ANGELIKA JUSTIN [phone] REASON FOR VISIT balance - f/u mid December Encounters Encounter Location Date Provider Diagnosis [facility] [address] [place] [address] 12/13/2023 ANGELIKA JUSTIN PLAN OF TREATMENT No Information Progress Notes * MATT MELLOIDOB: (48 yo F)Acc No.[id number]:12/13/2023 Patient:??MATT MELLO :1975?Age:48 Y?Sex:Fe male Address:[address] , [place] [address] * true * Date:??
--- OUTSIDE RECORDS SUMMARY | 2024-10-04 09:57 | XMS_ITS | Data Portability ---
Author Organization [facility], [address] Address [address] [place] [address] Assessment No assessment recorded. Plan of Treatment Reminders Order Date Submit Date Provider Last Modified By Organization Details Last Modified Time Details Appointments None recorded. Lab rapid flu (A+B) 2023 024 [email or web address] 5 [id number] [address], [address] [place], [address], 4 10:20:04 SARS CoV 2 (COVID-19) Ag, QL, IA, upper respiratory specimen 2023 024 [email or web address] 5 [address]93_[facility] [address], [address] [place], [address], 4 10:20:05 Referral None recorded. Procedures None recorded. Surgeries None recorded. Imaging XR, ankle, 3 or more view 2023 024 [facility], [address] [place], [address], 4 10:36:01 Medication Orders amoxicillin 875 mg-potassiu m clavulanate 125 mg tablet 2023 024 [facility]1111, [address] [place], [address], 4 09:36:24 albuterol sulfate HFA 90 mcg/actuati on aerosol inhaler 2023 024 [facility]1111, [address] [place], [address], 4 09:36:19 benzonatate 100 mg capsule 2023 024 [facility]1111, [address] [place], [address], 4 09:36:35 prednisone 20 mg tablet 2023 024 [facility] [address] [place], [address], 4 09:36:41 Patient TargetsNo targets recorded. Patient Instructions Encounter Date Encounter Id Patient Instructions Last Modified By Organization Details Last Modified Time 07/07/2023 [id number] Acute Sinusitis: Care Instructions [email or web address] Not available 07/07/2023 10:20:01 bronchitis: care instructions [email or web address] Not available 07/07/2023 10:20:01 wheezing or bronchoconstricti on: care instructions Not available 07/07/2023 10:20:01 Rest. Drink plenty [...] with breathing, shortness of breath, severe diarrhea. [email or web address] Not available 07/07/2023 10:21:49 Reason for Referral None Reported. Results Created Date Observation Date Name Description Value Unit Range Abnormal Flag Note LastModifiedBy Organization Detail LastModifiedTime 07/07/19 24 07/07/2023 SARS CoV 2 (COVI D-19) Ag, QL, IA, upper respi rator y speci men Unknown Analyte negati ve Not Available [address] [facility], [place], [address], 07/07/2023 09:26:13 07/07/19 24 07/07/2023 SARS CoV 2 (COVI D-19) Ag, QL, IA, upper respi rator y speci men Unknown Analyte yes Not Available [address]_ [facility] [address] [place], [address], 07/07/2023 09:26:13 07/07/19 24 07/07/2023 rapid flu (A+B) Unknown Analyte negati ve Not Available [address]993[address] [place], [address], 07/07/2023 09:25:34 07/07/19 24 07/07/2023 rapid flu (A+B) Unknown Analyte negati ve Not Available [address] [place], [address], 07/07/2023 09:25:34 07/07/19 24 07/07/2023 rapid flu (A+B) Unknown Analyte yes Not Available [address] [place] [address] [address] [place], [address], 07/07/2023 09:25:34 11/19/19 24 11/19/2023 XR, ankle , 3 or more view No observ ation record ed. [email or web address] [facility] [address] [facility] [place], [address], 11/19/2023 10:34:01 Result Notes None recorded. Problems Name Problem SNOMED Code Status Onset Date Resolution Date Notes Provider Name and Address Organization Details Recorded Time Polycystic ovary syndrome 813905157 Active Linda luu PA - [facility] 4 09:24:48 Arthritis 9401394 Active Linda luu PA - [facility] 4 09:25:00 Sprain of right ankle 3195340227852 9105 Active 2023 Jake Bryant DENTAL HYGIENE ADMINISTRATIVE ASSISTANT [address] [place], [address] , PA - [facility] 4 09:54:52 Problem Notes None recorded. Procedures Surgical History None recorded. Imaging Results Imaging Date Name Status LastModified by Organiz ation Details LastModified Time 11/19/2023 XR, ankle, 3 or more view completed [facility] [address] [facility] [facility] [address], [place], [address], 11/19/2023 10:34:01 Procedure Notes None recorded. Medical [...] Updated DateTime 4 157.48 cm 45.7 kg/m2 852141. 09 g 97 % 97 % 70 /min 18 /min 97.9 [degF] 139 mm[Hg] 79 mm[Hg] Lidna Galdamez [place] - [facility] 4 09:21:19 Date Recorded Body height Body mass index (BMI) Body weight Oxygen saturation Oxygen saturation in Arterial blood by Pulse oximetry Pain severity - 0-10 verbal numeric rating [Score] - Reported Heart rate Respiratory rate Body temperature Systolic blood pressure Diastolic blood pressure Provider Name and Address Organization Details Last Updated DateTime 4 157.48 cm 45.7 kg/m2 615144. 09 g 96 % 96 % 8 82 /min 18 /min 98 [degF] 118 mm[Hg] 74 mm[Hg] Carolann Abarca PA - [facility] 4 09:34:25 Social History Question Answer Notes LastModified by Organizat ion Details LastModified Time Tobacco Smoking Status Never Smoker CEASAR Anton - [facility] 07/07/2023 09:25:18 What Is Your Level Of Alcohol Consumption? None [email or web address] Information not available 07/07/2023 Are You Currently Employed? Yes Information not available 11/19/2023 Have You Had A Flu Shot This Season? Yes [email or web address] Information not available 07/07/2023 Have You Had Direct Contact, Or Contact During Intimacy, With Monkeypox Rash, Scabs, Or Body Fluids From A Person With Monkeypox? No [email or web address] Information not available 07/07/2023 What Was The Date Of Your Most Recent Tobacco Screening? 07/07/2023 [email or web address] Information not available 07/07/2023 What Is Your Relationship Status? Single Information not available 11/19/2023 Do You Use Any Illicit Or Recreational Drugs? No [email or web address] Information not available 07/07/2023 Have You Recently Traveled Abroad? No [email or web address] Information not available 07/07/2023 Are You Currently [...] SNOMED-CT Code Diagnosis ICD10 Code Diagnosis Note [id number] [address] [facility] [place] [address] 03/01/2016 19:52:36 03/01/2016 20:59:43 [id number] [address] [facility] [place] [address] 10/08/2019 15:28:33 10/08/2019 16:44:50 [id number] [address] [facility] [place] [place] [address] 10/06/2021 12:25:33 10/06/2021 14:36:48 [id number] [address] [facility] [place] [address] 06/10/2015 17:44:58 06/10/2015 18:31:50 [id number] [address] [facility] [place] [address] 12/24/2020 08:31:39 12/24/2020 09:51:00 [id number] [address] [facility], [place] [address] 10/19/2015 18:57:29 10/19/2015 19:33:38 [id number] [address] [facility], [place] [address] 06/15/2019 08:37:06 06/15/2019 10:11:03 [id number] [address] [facility] [place] [address] 12/21/2021 08:10:40 12/21/2021 09:37:05 [id number] [address] [facility], [place] [address] 12/19/2015 09:38:29 12/19/2015 10:13:24 [id number] Maureen Lamar MD [address] [facility] [place] [address] 07/07/2023 08:54:49 07/07/2023 10:24:52 Acute sinusitis 27329777 J01.90 Acute bron chitis with bronchospasm 19650434 J20.9 [id number] Jake Bryant NP [address] [facility], [place] [address] 11/19/2023 09:14:44 11/19/2023 10:36:01 Sprain of right ankle [id number] 9669878 S93.401A Based on your presentati on and [...] Redness5. Calf Swelling Thank you for using [facility] , please contact our office if you have any questions or concerns. Health Concerns Section Related Observation LastModified by Organization Detai ls LastModified Time None Recorded Concern Status LastModified by Organization Details LastModified Time None Recorded Advance Directives Directive None Recorded Payers Encounter Date Sequence Insurance Name Policy Number Policy Ly Covered Member ID Ly Member ID Guarantor Name 12/24/2020 1 [facility] [employer] (MEDICAID REPLACEMENT - HMO) PATRICIA Knowles [id number] Sophia Knowles 10/06/2021 1 [facility] [employer] (MEDICAID REPLACEMENT - HMO) PATRICIA Knowles [id number] Sophia Knowles 12/21/2021 1 [facility] [employer] (MEDICAID REPLACEMENT - HMO) PATRICIA Knowles [id number] Sophia Knowles 07/07/2023 1 [facility] [employer] (MEDICAID REPLACEMENT - HMO) PATRICIA Knowles [id number] Sophia Knowles 11/19/2023 1 [facility] [employer] (MEDICAID REPLACEMENT - HMO) PATRICIA Knowles [id number] Sophia Knowles Notes Date Note Type Note [...] Maureen Lamar MD [address] [place], [address], [facility] 07/13/2023 09:14:36 4 text/html Foot/Ankle UCReported bypatient.source [...] Jake Bryant NP [address] [place], [address], [facility] 11/19/2023 11:01:19 OBGyn Episode No OBEpisode recorded.
--- OUTSIDE RECORDS SUMMARY | 2024-10-04 09:58 | XMS_ITS | Patient Health Record ---
Author Organization [facility] Address [address] [place] [address] Care Team Providers Care Volunteer Services Coordinator Name Role Phone adalberto Zimmerman Primary Care Provider ANGELIKA Kirkland Unavailable [phone] ALLERGIES No Known Allergies REASON FOR REFERRAL No Information MEDICATIONS Medication SIG (Take, Route, Frequency, Duration) Notes Start Date End Date Status metFORMIN HCl ER 500 MG 1 tablet with evening meal Orally Once a day for 30 day(s) Active Mounjaro 5 MG/0.5ML 5 mg Subcutaneous we ekly for 30 days Active Meloxicam 15 MG TAKE 1 TABLET BY LEAH TH EVERY DAY FOR 90 DAYS for 90 Active Sertraline HCl 100 MG TAKE 1 TABLET BY MOUTH EVERY DAY FOR 90 DAYS for 90 Active Mounjaro 2.5 MG/0.5ML INJECT 2.5 MG SUBCUTANEOUSLY WEEKLY for 30 Active Vitamin D 50 MCG (1999) 1 tablet Orally Once a day refill needed Active Clotrimazole-Betamet hasone 1-0.05 % APPLY DAILY TO SKIN TO AFFECTED AREA TWICE A DAY FOR 2 WEEKS for 14 Active SOCIAL HISTORY Tobacco Use: Social History Observation Description Date Details (start date - stop date) Never Smoker NA - NA Sex Assigned At : Social History Observation Description Sex Assigned At Unknown Tobacco Use/Smoking Question Answer Notes Are you a nonsmoker Section Notes: alcohol: denies tobacco: denies marijuana: Denies caffeine: a lot of soda a few 20oz bottles daily, She has cut down to one 20 ounce bottle per day Exercise: Denies alcohol: denies tobacco: denies marijuana: Denies caffeine: a lot of soda a few 20oz bottles daily, She has cut down to one 20 ounce bottle per day Exercise: Denies alcohol: denies tobacco: denies marijuana: Denies caffeine: a lot of soda a few 20oz bottles daily Exercise: Denies Diet: Abdominal pain and diarrhea with milk/icecream alcohol: denies tobacco: denies marijuana: Denies caffeine: a lot of soda a few 20oz bottles daily, She has cut down to one 20 ounce bottle per day Exercise: Denies alcohol: denies tobacco: denies marijuana: Denies caffeine: a lot of soda a few 20oz bottles daily, She has cut down to one 20 ounce bottle per day Exercise: Denies alcohol: denies tobacco: denies marijuana: Denies caffeine: a lot of soda a few 20oz bottles daily, She has cut down to one 20 ounce bottle per day Exercise: Denies alcohol: denies tobacco: denies marijuana: Denies caffeine: a lot of soda a few 20oz bottles daily, She has cut down to one 20 ounce bottle per day Exercise: Denies PROBLEMS Problem Type ICD Code Onset Dates Problem Status W/U Status Risk SNOMED Code Notes Problem Other obesity (E66.8) Active confirmed 491705046 Problem Hyperlipidemia, unspecified (E78.5) Active confirmed Hyperlipidemia (96640134) Problem Type 2 diabetes mellitus with complication, unspecified whether fci insulin use (E11.8) Active confirmed Disorder due to type 2 diabetes mellitus (461197389) Problem Vitamin D deficiency (E55.9) Active confirmed Vitamin D deficiency (56076507) Problem BMI 40.0-44.9, adult (Z68.41) Active confirmed 903875094 Problem PCOS (polycystic ovarian syndrome) (E28.2) Active confirmed 642868914 Problem BMI 45.0-49.9, adult (Z68.42) Active confirmed 325873954 Problem Arthritis of left knee (M17.12) Active confirmed Arthritis of le ft knee (1529286466341876 ) Encounters Encounter Location Date Provider Diagnosis [facility] [address] [place] [address] 10/18/2023 ANGELIKA ZIMMERMAN [facility] [address] [place] [address] 12/13/2023 ANGELIKA ZIMMERMAN PLAN OF TREATMENT Pending Test Test Name Order Date MAMMOGRAM, SCREENING 04/27/2022 CBC (COMPLETE BLOOD COUNT) 12/01/2018 COMPREHENSIVE METABOLIC PANEL 12/01/2018 HEMOGLOBIN A1C 12/01/2018 LIPID PANEL 12/01/2018 Cologuard 04/27/2022 Insurance Providers Payer Name Payer Address Payer Phone Subscriber Number Group Number Insured Name Patient Relationship to Insured Coverage Start Date Coverage End Date Multiplan [address] [facility] [place] [phone] [id number] MATT MELLO Self - patient is the insured 2 MEDICATIONS ADMINISTERED Medication Instructions Date of Administration Dosage Notes MICC B12 INJECTION 04/27/2022 1 mL Lot #: [id number] MICC B12 INJECTION 07/27/2022 [id number] MICC B12 INJECTION 08/25/2022 [id number] -[id number] MICC B12 INJECTION 04/20/2023 [facility] MEDICAL (GENERAL) HISTORY Medical History History ICD Code diabetes mellitus depression arthritis Surgical History Surgery Date(Month/Year) ear surgery 2007, audiosclerosis
--- OUTSIDE RECORDS SUMMARY | 2024-10-04 09:58 | XMS_ITS ---
Author Organization [facility] Address [address] [place] [address] Care Team Providers Care Obstetrics Nurse Practitioner Name Role Phone adalberto Zimmerman Primary Care Provider UnavailANGELIKA Sheth Unavailable [phone] TK SOLIS [phone] Encounters Encounter Location Date Provider Diagnosis [facility] [address] [place] [address] 09/30/2023 TK SOLIS PLAN OF TREATMENT No Information Progress Notes * MATT MELLOIDOB: (49 yo F)Acc No.[id number]:09/30/2023 Progress Notes Patient:??MATT MELLO Provider:??TK STUART PA-C :1975?Age:48 Y?Sex:Fe male Date:09/30/2023 Address:[address] [facility], [facility] Pcp:adalberto Zimmerman Subjective: * Chief Complaints: * ? * Medical History:?? Objective: Assessment: Plan: * Treatment: * Images: Billing Information: * Visit Code:?? * Procedure Codes:?? Care Plan Details* * Sign off status: Pending * Provider:??TK STUART PA-C Date:??09/19
== END 2024-10-04 10:43 | disposition home or self-care (01) ==
LOC: HO.HMCFM 09:11
PROVIDERS: PCP Family Medicine; Visit Provider Family Medicine
DX: E11.65 Type 2 diabetes mellitus with hyperglycemia (principal); E66.01 Morbid (severe) obesity due to excess calories; Z68.42 Body mass index [BMI] 45.0-49.9, adult; M25.561 Pain in right knee; G47.30 Sleep apnea, unspecified; R07.9 Chest pain, unspecified; M79.642 Pain in left hand; M25.562 Pain in left knee

== ENCOUNTER → 2024-10-04 09:10 | Outpatient (BNVA) | payer OTHER, SELFPAY | PROVIDERS: PCP Family Medicine; Visit Provider Family Medicine | DX: E11.9 Type 2 diabetes mellitus without complications (principal); E66.01 Morbid (severe) obesity due to excess calories; Z68.42 Body mass index [BMI] 45.0-49.9, adult; G47.30 Sleep apnea, unspecified; R07.9 Chest pain, unspecified; M79.642 Pain in left hand; M25.569 Pain in unspecified knee; Z79.84 Long term (current) use of oral hypoglycemic drugs | CPT/HCPCS: 99212 ==

== ENCOUNTER → 2024-11-06 07:59 | Outpatient (REF) | payer OTHER, SELFPAY ==
--- NOTE | 2024-11-06 08:01 | CA_ITS ---
Transthoracic Echocardiogram Patient (Last, First, Middle): Sophia Knowles C Gender: Female Date of : 1975 Age: 49 Procedure Date: 11/06/2024 Procedure Type: Transthoracic Echocardiogram Location: OP Height: 157.48 cm Weight: 111.13 kg BSA: 2.08 m2 Heart Rate: bpm BP: 122 / 70 mmHg As400 Analyst: PAWAN Referring MD: Jorge Alberto Condon MD Symptoms: R07.9 - Chest pain, unspecified Study Quality: Adequate with contrast ECG Rhythm: Sinus Conclusions: - The left ventricular systolic function is normal. The calculated ejection fraction is 68% by biplane method. - There is mild septal asymmetric hypertrophy. - No obvious valvular pathology seen on this study. Findings Procedure Information Contrast agent, definity, is being given per protocol without apparent complications. Left Ventricle Normal left ventricular cavity size. The left ventricular systolic function is normal. The calculated ejection fraction is 68% by biplane method. There is no evidence of regional wall motion abnormalities. Diastolic function is normal for age. There is mild septal asymmetric hypertrophy. Right Ventricle Normal right ventricular cavity size and systolic function. Atria Both atria are normal in size. Aortic Valve There is a normal trileaflet aortic valve. There is no aortic valve stenosis. There is no aortic valve regurgitation. Mitral Valve The mitral valve appears normal. There is no mitral valve regurgitation. There is no mitral valve stenosis. Pulmonic Valve The pulmonic valve is likely normal. Tricuspid Valve There is trace tricuspid valve regurgitation. Tricuspid regurgitation envelope is inadequate for calculation of right ventricular systolic pressure. Great Vessels The asc aorta is normal in size. Venous The inferior vena cava was not well visualized. Pericardium/Pleural There is no evidence of pericardial effusion. Prior Study Comparison No prior study available for comparison. Recommendations, Care & Conclusions No obvious valvular pathology seen on this study. Measurements 2D Linear Measurements IVSd: 1.18 0.6-0.9/0.6-1.0 cm LVIDd: 4.01 3.9-5.3/4.2-5.9 cm LVIDd Index: 1.93 2.4-3.2/2.2-3.1 cm/m2 LVIDs: 2.43 2.0-3.6 cm LVPWd: 0.79 0.7-1.1 cm LA Diam: 3.70 2.7-3.8/3.0-4.0 cm LAIDs Index: 1.78 1.5-2.3 cm/m2 LV Mass: 154.89 67-162/88-224 g LV Mass Index: 74.47 43-95/49-115 g/m2 LVOT Diam: 2.00 3.0+(-)1.3 cm 2D Systolic Function EF 4C: 66.20 >55% EF 2C: 71.00 >55% EF BiP: 67.70 >55% Mitral Valve MV Pk E: 1.06 MV PK A: 0.82 MV Decel Time: 201.00 E/A: 1.30 E'Lateral: 9.03 E'Medial: 9.46 E/E' Med: 11.20 E/E' Lat: 11.70 PHT: 59.00 MVA PHT: 3.73 Decel Mcdonald: 5.28 Aortic Valve AoV Pk Mariano: 1.26 AoV Mn Mariano: 0.88 AoV VTI: 0.29 AoV Pk Grad: 6.00 Aov Mn Grad: 3.00 YOLY Cont.VTI: 2.41 LVOT LVOT Pk Mariano: 1.11 LVOT Mn Mariano: 0.75 LVOT VTI: 0.23 LVOT Pk Grad: 5.00 LVOT Mn Grad: 2.00 LVOT Diam: 2.00 LVOT Area: 3.14 Diastolic Function MV Pk E: 1.06 MV Pk A: 0.82 E/A: 1.30 E'Medial: 9.46 E/E' Med: 11.20 E' Laterial: 9.03 E/E' Lat: 11.70 Right Ventricle TAPSE (mm): 24.90 TVS' Mariano: 14.60 Great Vessels Aorta Sinus of Valsalva: 3.29 2.0-3.5 cm Ao Asc: 3.40 2.1-3.4 cm Updated in Other Vendor System with Status of Final Reji Jimenez MD electronically signed on 11/06/2024 10:18:06 AM with status of Final
--- OUTSIDE RECORDS SUMMARY | 2024-11-06 08:02 | XMS_ITS | Data Portability ---
Author Organization [facility], [address] Address [address] [place] [address] Assessment No assessment recorded. Plan of Treatment Reminders Order Date Submit Date Provider Last Modified By Organization Details Last Modified Time Details Appointments None recorded. Lab rapid flu (A+B) 2023 024 [email or web address] 5 [address] [address], [address] [place], [address], 4 10:20:04 SARS CoV 2 (COVID-19) Ag, QL, IA, upper respiratory specimen 2023 024 [email or web address] 5 [address] [address], [address] [place], [address], 4 10:20:05 Referral None recorded. Procedures None recorded. Surgeries None recorded. Imaging XR, ankle, 3 or more view 2023 024 [email or web address] [facility], [address] [place], [address], 4 10:36:01 Medication Orders amoxicillin 875 mg-potassiu m clavulanate 125 mg tablet 2023 024 [facility], [address] [place], [address], 4 09:36:24 albuterol sulfate HFA 90 mcg/actuati on aerosol inhaler 2023 024 [facility]1111, [address] [place], [address], 4 09:36:19 benzonatate 100 mg capsule 2023 024 [facility]1111, [address] [place], [address], 4 09:36:35 prednisone 20 mg tablet 2023 024 [facility] [address] [place], [address], 4 09:36:41 Patient TargetsNo targets recorded. Patient Instructions Encounter Date Encounter Id Patient Instructions Last Modified By Organization Details Last Modified Time 07/07/2023 [id number] Acute Sinusitis: Care Instructions Not available 07/07/2023 10:20:01 bronchitis: care instructions [email or web address] Not available 07/07/2023 10:20:01 wheezing or bronchoconstricti on: care instructions [email or web address] Not available 07/07/2023 10:20:01 Rest. Drink plenty [...] with breathing, shortness of breath, severe diarrhea. [email or web address] Not available 07/07/2023 10:21:49 Reason for Referral None Reported. Results Created Date Observation Date Name Description Value Unit Range Abnormal Flag Note LastModifiedBy Organization Detail LastModifiedTime 07/07/19 24 07/07/2023 SARS CoV 2 (COVI D-19) Ag, QL, IA, upper respi rator y speci men Unknown Analyte negati ve Not Available [address] [facility], [place], [address], 07/07/2023 09:26:13 07/07/19 24 07/07/2023 SARS CoV 2 (COVI D-19) Ag, QL, IA, upper respi rator y speci men Unknown Analyte yes Not Available [address] [facility] [address] [place], [address], 07/07/2023 09:26:13 07/07/19 24 07/07/2023 rapid flu (A+B) Unknown Analyte negati ve Not Available [address] [place], [address], 07/07/2023 09:25:34 07/07/19 24 07/07/2023 rapid flu (A+B) Unknown Analyte negati ve Not Available [address] [place], [address], 07/07/2023 09:25:34 07/07/19 24 07/07/2023 rapid flu (A+B) Unknown Analyte yes Not Available [address] [place] [address] [address] [place], [address], 07/07/2023 09:25:34 11/19/19 24 11/19/2023 XR, ankle , 3 or more view No observ ation record ed. [email or web address] [facility] [address] [facility] [place], [address], 11/19/2023 10:34:01 Result Notes None recorded. Problems Name Problem SNOMED Code Status Onset Date Resolution Date Notes Provider Name and Address Organization Details Recorded Time Polycystic ovary syndrome 784196768 Active Linda luu PA - [facility] 4 09:24:48 Arthritis 3050671 Active Linda luu PA - [facility] 4 09:25:00 Sprain of right ankle 2511587831795 9105 Active 2023 Jake Bryant [employer] [address] [place], [address] , PA - [facility] 4 09:54:52 Problem Notes None recorded. Procedures Surgical History None recorded. Imaging Results Imaging Date Name Status LastModified by Organiz ation Details LastModified Time 11/19/2023 XR, ankle, 3 or more view completed [facility] [address], [place], [address], 11/19/2023 10:34:01 Procedure Notes None recorded. Medical [...] Updated DateTime 4 157.48 cm 45.7 kg/m2 991426. 09 g 97 % 97 % 70 [...] Updated DateTime 4 157.48 cm 45.7 kg/m2 957837. 09 g 96 % 96 % 82 /min 18 /min 98 [degF] 118 mm[Hg] 74 mm[Hg] Carolann Abarca PA - [facility] 4 09:34:25 Social History Question Answer Notes LastModified by Organizat ion Details LastModified Time Tobacco Smoking Status Never Smoker CE[facility] Anton - [facility] 07/07/2023 09:25:18 Have You Had A Flu Shot This Season? Yes [email or web address] Information not available 07/07/2023 Have You Had Direct Contact, Or Contact During Intimacy, With Monkeypox Rash, Scabs, Or Body Fluids From A Person With Monkeypox? No [email or web address] Information not available 07/07/2023 What Was The Date Of Your Most Recent Tobacco Screening? 07/07/2023 [email or web address] Information not available 07/07/2023 What Is Your Relationship Status? Single Information not available 11/19/2023 Have You Recently Traveled Abroad? No [email or web address] Information not available 07/07/2023 Are You Currently In School? No Information not available 11/19/2023 Sex: Unknown Functional Status Question Answer Note LastModified by Organizat ion Details LastModified Time Do you use any illicit or recreational drugs? No [email or web address] Information not available 07/07/2023 Do you or have you ever used any other forms of tobacco or nicotine? No Information not available 11/19/2023 What is your level of alcohol consumption? None [email or web address] Information not available 07/07/2023 Are you currently employed? Yes Information not available 11/19/2023 Mental Status None recorded. Family History Nothing Reported. Medical History No medical history recorded. Gynecological History Statement/Question Response Date of LMP 09/08/2023 Is there any chance of ? Unsure LMP N/A Obstetrics History GPAL:G 0 P 0 0 0 0 Past Encounters Encounter ID Performer Location Encounter Start Date Encounter Closed Date Diagnosis/Indication Diagnosis SNOMED-CT Code Diagnosis ICD10 Code Diagnosis Note [id number] [address] [place] [address] 03/01/2016 19:52:36 03/01/2016 20:59:43 [id number] [address] [place] [address] 10/08/2019 15:28:33 10/08/2019 16:44:50 [id number] [address] [facility], [place] [address] 10/06/2021 12:25:33 10/06/2021 14:36:48 [id number] [address] [facility], [place] [address] 06/10/2015 17:44:58 06/10/2015 18:31:50 [id number] [address] [facility], [place] [address] 12/24/2020 08:31:39 12/24/2020 09:51:00 [id number] [address] [place] [address] 10/19/2015 18:57:29 10/19/2015 19:33:38 [id number] [address] [facility] [address] 06/15/2019 08:37:06 06/15/2019 10:11:03 [id number] [address] [place] [address] 12/21/2021 08:10:40 12/21/2021 09:37:05 [id number] [address] [place] [address] 12/19/2015 09:38:29 12/19/2015 10:13:24 [id number] Maureen Lamar MD [address] [place] [address] 07/07/2023 08:54:49 07/07/2023 10:24:52 Acute sinusitis 20881885 J01.90 Acute bron chitis with bronchospasm 26868577 J20.9 [id number] Jake Bryant, RON [address] [facility] [address] 11/19/2023 09:14:44 11/19/2023 10:36:01 Sprain of right ankle [id number] 4378728 S93.401A Based on your presentati on and [...] Redness5. Calf Swelling Thank you for using [employer] , please contact our office if you have any questions or concerns. Health Concerns Section Related Observation LastModified by Organization Detai ls LastModified Time None Recorded Concern Status LastModified by Organization Details LastModified Time None Recorded Advance Directives Directive None Recorded Payers Insurance Date Sequence Insurance Name Policy Number Policy Ly Covered Member ID Ly Member ID Guarantor Name 11/19/2023 1 [facility] - [facility] (MEDICAID REPLACEMENT - O) PATRICIA Knowles [id number] Sophia Knowles Notes Date Note Type Note [...] Maureen Lamar MD [address] [place], [address], [employer] 07/13/2023 09:14:36 4 text/html Foot/Ankle UCReported bypatient.source [...] Jake Bryant NP [address] [place], [address], [employer] 11/19/2023 11:01:19 OBGyn Episode No OBEpisode recorded.
--- OUTSIDE RECORDS SUMMARY | 2024-11-06 08:02 | XMS_ITS ---
Author Organization [facility] Address [address] [place] [address] Care Team Providers Care Awning Hanger Helper Name Role Phone adalberto Zimmerman Primary Care Provider UnavailANGELIKA Sheth Unavailable [phone] TK SOLIS Unavailable [phone] Medications Medication SIG (Take, Route, Frequency, Duration) Notes Start Date End Date Status metFORMIN HCl ER 500 MG 1 tablet with evening meal Orally Once a day for 30 day(s) Active Mounjaro 5 MG/0.5ML 5 mg Subcutaneous we ekly for 30 days Active Clotrimazole-Betamet hasone 1-0.05 % APPLY DAILY TO SKIN TO AFFECTED AREA TWICE A DAY FOR 2 WEEKS for 14 Active Meloxicam 15 MG 1 tablet Orally Once a day for 90 days Active Mounjaro 2.5 MG/0.5ML INJECT 2.5 MG SUBCUTANEOUSLY WEEKLY for 30 Active Vitamin D 50 MCG (1999) 1 tablet Orally Once a day refill needed Active Sertraline HCl 100 MG 1 tablet Orally Once a day for 90 days Active Encounters Encounter Location Date Provider Diagnosis [facility] [address] [place] [address] 07/21/2023 TK SOLIS Plan Of Treatment No Information Progress Notes * MATT MELLOIDOB: (49 yo F)Acc No.[id number]:07/21/2023 Patient:?MATT MELLO Provider:?TK STUART PA-C :1975???Age:48 Y???Sex:Female D ate:07/21/2023 Address:[address] [place] [address] [address], [place], [place] Pcp:adalberto Zimmerman Subjective: * Chief Complaints: * ??? * Medical History:? * Medications:?Taking Mounjaro 5 MG/0.5ML Solution Pen-injector 5 mg Subcutaneous weekly , Taking metFORMIN HCl ER 500 MG Tablet Extended Release 24 Hour 1 tablet with evening meal Orally Once a day , Taking Sertraline HCl 100 MG Tablet 1 tablet Orally Once a day , Taking Vitamin D 50 MCG (1999 [place]) Tablet 1 tablet Orally Once a day , Notes to Pharmacist: refill needed, Taking Mounjaro 2.5 MG/0.5ML Solution Pen-injector INJECT 2.5 MG SUBCUTANEOUSLY WEEKLY , Taking Meloxicam 15 MG Tablet 1 tablet Orally Once a day , Taking Clotrimazole-Betamethasone 1-0.05 % Cream APPLY DAILY TO SKIN TO AFFECTED AREA TWICE A DAY FOR 2 WEEKS Objective: * Vitals:? Assessment: Plan: * Treatment: * Procedure Codes:?27771 NO SH OW OFFICE VISIT * Billing Information: * Visit Code:? * Procedure Codes:? 19824 NO SHOW OFFICE VISIT. * Electronic signature of ROBER SOLIS PA-C on 11/06/2024 at 08:02 AM EDT Sign off status: Pending * Provider:?TK STUART PA-C Date:?2023 Generated for Debi dye/Corie/Valorie on:?11/06/2024 08:02 AM EDT
--- OUTSIDE RECORDS SUMMARY | 2024-11-06 08:02 | XMS_ITS ---
Author Organization [facility] Address [address] [place] [address] Care Team Providers Care School Photographs Detailer Name Role Phone adalberto Zimmerman Primary Care Provider Unavailabl ANGELIKA Fisher Unavailable [phone] TK SOLIS Unavailable [phone] Encounters Encounter Location Date Provider Diagnosis [facility] [address] [place] [address] 05/25/2023 TK SOLIS Plan Of Treatment No Information Progress Notes * FUNMILAYOYIMIMATTFREDRICK ESPINOZAIDOB: (49 yo F)Acc No.[id number]:05/25/2023 Patient:?FUNMILAYO MATT MEJIA Provider:?TK STUART PA-C :1975???Age:48 Y???Sex:Female D ate:05/25/2023 Address:[address] [place] [address], [facility] Pcp:adalberto Zimmerman Subjective: * Chief Complaints: * ??? * Medical History:? Objective: * Vitals:? Assessment: Plan: * Treatment: * Billing Information: * Visit Code:? * Procedure Codes:? * Electronic signature of ROBER SOLIS PA-C on 11/06/2024 at 08:02 AM EDT Sign off status: Pending * Provider:?TK STUART PA-C Date:?2022 Generated for Olivieri ng/Fajoshuag/eTransmitting on:?11/06/2024 08:02 AM EDT
--- OUTSIDE RECORDS SUMMARY | 2024-11-06 08:03 | XMS_ITS | Patient Health Record ---
Author Organization [email or web address] Address [address] [place] [address] Care Team Providers Care Family Practice Doctor Name Role Phone adalberto Zimmerman Primary Care Provider ANGELIKA Kirkland Unavailable [phone] Allergies No Known Allergies Reason For Referral No Information Medications Medication SIG (Take, Route, Frequency, Duration) [...] for 90 Active Sertraline HCl 100 MG 1 tablet Orally Once a day for 90 days Active Mounjaro 2.5 MG/0.5ML INJECT 2.5 MG SUBCUTANEOUSLY WEEKLY for 30 Active Vitamin D 50 MCG (1999) 1 tablet Orally Once a day refill needed Active Clotrimazole-Betamet hasone 1-0.05 % APPLY DAILY TO SKIN TO AFFECTED AREA TWICE A DAY FOR 2 WEEKS for 14 Active Social History Tobacco Use: Social History Observation Description Date Details (start date - stop date) Never Smoker NA - NA Tobacco Use/Smoking Question Answer Notes Are you [...] 20 ounce bottle per day Exercise: Denies Problems Problem Type SNOMED Code ICD Code Onset Dates Problem Status W/U Status Risk Notes Problem 678121905 Other obesity (E66.8) Active confirmed Problem Hyperlipidemia (70005433) Hyperlipidemia, unspecified (E78.5) Active confirmed Problem 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) Type 2 diabetes mellitus with complication, unspecified whether custodial insulin use (E11.8) Active confirmed Problem Vitamin D deficiency (31780285) Vitamin D deficiency (E55.9) Active confirmed Problem 123749950 BMI 40.0-44.9, adult (Z68.41) Active confirmed Problem 211456014 PCOS (polycystic ovarian syndrome) (E28.2) Active confirmed Problem 300857398 BMI 45.0-49.9, adult (Z68.42) Active confirmed Problem Arthritis of left knee (3325349864891737) Arthritis of left knee (M17.12) Active confirmed Encounters Encounter Location Date Provider Diagnosis [facility] [address] [place] [address] 12/13/2023 ANGELIKA ZIMMERMAN Plan Of Treatment Pending Test Test Name Order Date MAMMOGRAM, SCREENING 04/27/2022 CBC (COMPLETE BLOOD COUNT) 12/01/2018 COMPREHENSIVE METABOLIC PANEL 12/01/2018 HEMOGLOBIN A1C 12/01/2018 LIPID PANEL 12/01/2018 Cologuard 04/27/2022 Insurance Providers Payer Name Payer Address Payer Phone Subscriber Number Group Number Insured Name Patient Relationship to Insured Coverage Start Date Coverage End Date Multiplan [address] [place] [place] [phone] [id number] MATT MELLO Self - patient is the insured 2 Medications Administered Medication Instructions Date of Administration Dosage Notes MICC B12 INJECTION 04/27/2022 1 mL Lot #: [id number] MICC B12 INJECTION 07/27/2022 [id number] MICC B12 INJECTION 08/25/2022 [id number] -[id number] MICC B12 INJECTION 04/20/2023 [facility] Medical (General) History Medical History History ICD Code diabetes mellitus depression arthritis Surgical History Surgery Date(Month/Year) ear surgery 2007, audiosclerosis
--- OUTSIDE RECORDS SUMMARY | 2024-11-06 08:03 | XMS_ITS ---
Author Organization [facility] Address [address] [place] [address] Care Team Providers Care Bank Sales And Service Manager Name Role Phone adalberto Zimmerman Primary Care Provider UnavailANGELIKA Sheth Unavailable [phone] TK SOLIS Unavailable [phone] Encounters Encounter Location Date Provider Diagnosis [facility] [address] [place] [address] 09/30/2023 TK SOLIS Plan Of Treatment No Information Progress Notes * YIMI MELLOFREDRICK ESPINOZAIDOB: (49 yo F)Acc No.[id number]:09/30/2023 Progress Notes Patient:?YIMI MELLOFREDRICK MEJIA Provider:?TK STUART PA-C :1975???Age:48 Y???Sex:Female D ate:09/30/2023 Address:[address] [place] [address], [facility] Pcp:adalberto Zimmerman Subjective: * Chief Complaints: * ??? * Medical History:? Objective: * Vitals:? Assessment: Plan: * Treatment: * Billing Information: * Visit Code:? * Procedure Codes:? Care Plan Details* * Electronic signature of ROBER SOLIS PA-C on 11/06/2024 at 08:02 AM EDT Sign off status: Pending * Provider:MAURICE STUART PA-C Date:?2023 Generated for Olivieri hardik/Corie/eTransmitting on:?11/06/2024 08:02 AM EDT
== END ==
LOC: HO.CARD 07:59
PROVIDERS: PCP Family Medicine; Visit Provider Family Medicine
DX: R07.9 Chest pain, unspecified (principal)
CPT/HCPCS: 93306; Q9957

== ENCOUNTER → 2024-11-06 08:01 | Outpatient (BNV) | payer OTHER, SELFPAY | PROVIDERS: PCP Family Medicine; Visit Provider Internal Medicine | DX: I42.2 Other hypertrophic cardiomyopathy (principal) | CPT/HCPCS: 93306 ==

== ENCOUNTER 2025-03-08 10:03 | Outpatient (AMB) | payer OTHER, SELFPAY ==
--- OUTSIDE RECORDS SUMMARY | 2023-09-30 05:45 | XMS_ITS ---
Author Organization [facility] [address] Address [address] [place] [address] Care Team Providers Care Payment Specialist Name Role Phone adalberto Zimmerman Primary Care Provider UnavailANGELIKA Sheth Unavailable [phone] TK SOLIS Unavailable [phone] Encounters Encounter Location Date Provider Diagnosis [facility] [address] [place] [address] 09/30/2023 TK SOLIS Plan Of Treatment No Information Progress Notes * MATT MELLOIDOB: (50 yo F)Acc No.[id number]:09/30/2023 Progress Notes Patient: Nathan PARKER MATT PAREDES Provider: Artie STUART PA-C :1975 A ge:48 Y S ex:Female Date:09/30/2023 Address:[address] [place] [address], [id number] Pcp:adalberto Zimmerman Subjective: * Chief Complaints: * * Medical History: Objective: * Vitals: Assessment: Plan: * Treatment: * Images: Billing Information: * Visit Code: * Procedure Codes: Care Plan Details* * Electronic signature of ROBER SOLIS PA-C on 03/08/2025 at 11:53 AM EDT Sign off status: Pending * Provider: Artie STUART PA-C Date: 09/30/2023 Generated for Olivieri ng/Fajoshuag/eTransmitting on: 0 03/08/2025 11:53 AM EDT
--- NOTE | 2025-03-08 10:07 | A.OFFPC_ITS ---
Vital Signs 03/08/25 10:11 Height 5 ft 2 in Weight 246 lb 2 oz BMI 45.0 BP 124/69 Blood Pressure Location Rt brachial Position Sitting Respiration 16 Pulse 90 Pulse Source Pulse Oximeter Temp 97.9 F Temp Source Oral Pulse Oximetry (%) 97 Oxygen Delivery Method Room Air Intake Visit Reasons: fu dm Intake Note: patient here for follow up on DM Slurry Control Operator Helper Required: No Is last menstrual period known: No Post menopausal: No Patient : No Allergies No Known Allergies Allergy (Verified 03/08/25 10:10) Medication List - Last Reconciled 03/08/25 by Jorge Alberto Condon MD clotrimazole 1% 1 appl topical BID 2 weeks meloxicam 15 mg PO DAILY 30 days metformin ER 500 mg PO BID 90 days sertraline 150 mg (1.5 x 100 mg) PO DAILY 30 days tirzepatide (weight loss) 5 mg (0.5 mL) subcut QWEEK 28 days Tobacco use date assessed: 03/08/25 Dental Screening Dental Screen Date: 03/08/25 Did you have a dental visit in the last 12 months?: Yes Did you have a dental problem in the last 6 months where you did not have access to dental care?: No Was dental information given to patient?: Patient has dentist HPI fu dm HPI Details 50 y/o female presents to f/u diabetes. Last A1c 8.7%. A1c today 8.0%. She is on metformin 500mg b.i.d, tirzepatide 5mg. Reports ongoing chest pain when lying down. EKG and echocardiogram had been unrevealing. She notes she is not on anything for acid reflux. Reports ongoing fatigue/un-restful sleep. Complaints of some folliculitis. HPI Comments History of Present Illness Details Documentation assistance for Jorge Alberto Condon MD, was provided by Misael Monique,? Stock Tracer on at 10:24 AM MARLA. I, Dr. Condon, have read, observed, and verified documentation. ?? PFSH Surgical History History of ear surgery Family History Mother Breast cancer Gastrointestinal complaints Social History Household Members: Family Housing: House Alcohol intake: never Patient Tobacco Use Status: Never used Tobacco e-Cigarette/Vaping Use: Never Used Second Hand Smoke Exposure: No service: No Current occupational status: employed Current occupational exposures/hazards: Yes Cognitive needs: No Hearing needs: Yes Vision needs: Yes Questionnaire Thrive Questionnaire Date Thrive assessed: 07/05/24 I am a: Patient What is your living situation today?: I have a steady place to live Within the past 12 months, did the food you bought not last and you didn't have the money to get more?: Never true Within the past 12 months, did you worry whether your food would run out before you got money to buy more?: Never true Do you have trouble paying for medicines?: Yes Do you have trouble getting transportation to medical appointments?: No Do you have trouble paying your heating and electricity bill?: Yes Do you have trouble taking care of your child, family member or friend?: No Do you have trouble with day-to-day activities such as bathing, preparing meals, shopping, managing finances, etc.?: No Are you currently unemployed and looking for a job?: No Are you interested in more education?: No Please select the resources that you would like help with: None Currently or been in a relationship where the following occur: No concerns reported THRIVE Score: 1 AUDIT C Alcohol Use Questionnaire (AUDIT-C) 3. How often do you have six or more drinks on one occasion?: Never Total Score: 0 JANIS-7 AMB Questionnaire JANIS-7 Date JANIS - 7 assessed: 08/20/21 Source: Developed by Drs. Nate Joseph, Pao Hewitt, Anatoliy Nash and colleagues, with an educational vale from [employer]. Review of Systems Const Denies chills, Denies fatigue, Denies fever(s), Denies headache(s) and Denies weakness ENT Denies dizziness and Denies headache(s) Card Denies dyspnea Resp Denies cough, Denies dyspnea, Denies wheezing and Denies other (shortness of breath) Musc Denies numbness and Denies tingling Neuro Denies dizziness, Denies headache(s), Denies numbness, Denies tingling and Denies weakness Psych Denies anxiety and Denies depression Endo Denies fatigue Aller/Immun Denies wheezing Physical exam (Primary Care) Vital Signs: Last Vital Signs Temp 97.9 F 03/08/25 10:11 Pulse 90 03/08/25 10:11 Resp 16 03/08/25 10:11 BP 124/69 03/08/25 10:11 Pulse Ox 97 03/08/25 10:11 Oxygen Delivery Method Room Air 03/08/25 10:11 BMI result Body Mass Index 45.0 Tobacco/Smoking Status: Tobacco use Status Tobacco use date assessed 03/08/25 03/08/25 10:15 Patient Tobacco Use Status Never used Tobacco 03/08/25 10:08 e-Cigarette/Vaping Use Never Used 03/08/25 10:08 Thrive Assessment: Date of Thrive Assessment Date Thrive assessed 07/05/24 03/08/25 10:08 Currently or been in a relationship where the following occur: No concerns reported Const General: well developed; No acute distress Nutritional Appearance: well nourished and obese morbidly obese Orientation/consciousness: patient oriented x3 HENMT Head: Yes normocephalic and Yes atraumatic Eyes General: appearance normal, both eyes and all related structures Pupils: Equal, round and reactive pupils present EOM: EOMs intact bilaterally Resp Effort & Inspection: normal respiratory effort Auscultation: clear to auscultation bilaterally Cardio Rate: regular rate Rhythm: regular rhythm Heart sounds: S1 normal heart sound present, S2 normal heart sound present, no gallops, no murmurs and no rubs Neuro General: patient oriented x3 and gait normal Cranial nerves: Yes Equal, round and reactive pupils present Psych Affect: normal affect Results AMB Hemoglobin A1c AMB Hemoglobin A1c 8.0 % Last Edit by Kaylie Lopez CMA on 03/08/25 10:35 Results Reviewed Results Reviewed: Laboratory Last Values Hgb A1c (Clinic) 8.0 % (4.0-6.0) H 03/08/25 10:34 Coding Level of Care Code Est Pt Level 4 (12139) Diagnoses Poorly controlled diabetes mellitus E11.65 Chest pain R07.9 Sleep apnea G47.30 Folliculitis L73.9 Morbid obesity E66.01 Assessment & Plan Assessment & Plan (1) Poorly controlled diabetes mellitus: Code(s): E11.65 - Type 2 diabetes mellitus with hyperglycemia Category: Medical Plan: A1c improved from 8.7% to 8.0%. Still significantly elevated. Goal is less than 7.0% However, patient just started her new as dose of drugs appetite She also has not picked up glipizide - she will ask to pay [id number] if she can afford it. She will continue metformin Has an upcoming appointment next month with endocrinology. (2) Chest pain: Code(s): R07.9 - Chest pain, unspecified Category: Medical Plan: EKG and echocardiogram are normal Not associated with exertion She notes symptoms are essentially only at night and seem more likely related to GI etiology such as GERD. Start omeprazole (3) Sleep apnea: Code(s): G47.30 - Sleep apnea, unspecified Category: Medical Plan: Patient has not been contacted by sleep medicine I gave her the phone number She still notes significant he as well (4) Folliculitis: Code(s): L73.9 - Follicular disorder, unspecified Category: Medical Plan: Mild folliculitis on her legs Can try Hibiclens (5) Morbid obesity: Code(s): E66.01 - Morbid (severe) obesity due to excess calories Category: Medical Plan: Taking 2 his appetite and just increased dose Encouraged exercise and decreased portion sizes at meals Will continue monitor Orders: Orders AMB Hemoglobin A1c Today E11.9 - Type 2 diabetes mellitus without complications Medications: New omeprazole 20 mg PO DAILY 30 caps 3RF 30 days Refilled glipizide ER 10 mg PO QAM 30 tabs 1RF 30 days
[2025-03-08 10:11] VITALS: BP 124/69; PULSE 90; RESP 16; TEMP 36.6; O2SAT 97; BMI 45.0
--- OUTSIDE RECORDS SUMMARY | 2025-03-08 11:53 | XMS_ITS | Patient Health Record ---
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 Name Role Phone adalberto Zimmerman Primary Care Provider ANGELIKA Kirkland Unavailable [phone] Allergies No Known Allergies Reason For Referral No Information Medications Medication SIG (Take, Route, Frequency, Duration) Notes Start Date End Date Status metFORMIN HCl ER 500 MG 1 tablet with evening meal Orally Once a day; Duration: 30 day(s) Active Mounjaro 5 MG/0.5ML 5 mg Subcutaneous weekly; Duration: 30 days Active Meloxicam 15 MG TAKE 1 TABLET BY LEAH TH EVERY DAY FOR 90 DAYS; Duration: 90 Active Sertraline HCl 100 MG 1 tablet Orally Once a day; Duration: 90 days Active Mounjaro 2.5 MG/0.5ML INJECT 2.5 MG SUBCUTANEOUSLY WEEKLY; Duration: 30 Active Vitamin D 50 MCG (1999 UT) 1 tablet Orally Once a day refill needed Active Clotrimazole-Betamet hasone 1-0.05 % APPLY DAILY TO SKIN TO AFFECTED AREA TWICE A DAY FOR 2 WEEKS; Duration: 14 Active Social History Tobacco Use: Social [...] Problem Status W/U Status Risk Notes Problem Obesity (787687244) Other obesity (E66.8) Active confirmed Problem Hyperlipidemia (38675158) Hyperlipidemia, unspecified (E78.5) Active confirmed Problem Disorder due to type 2 diabetes mellitus (994005422) Type 2 diabetes mellitus with complication, unspecified whether nursing home insulin use (E11.8) Active confirmed Problem Vitamin D deficiency (13360742) Vitamin D deficiency (E55.9) Active confirmed Problem Body mass index 40+ - morbidly obese (304096446) BMI 40.0-44.9, adult (Z68.41) Active confirmed Problem Polycystic ovary syndrome (disorder) (572970439) PCOS (polycystic ovarian syndrome) (E28.2) Active confirmed Problem Body mass index 40+ - severely obese (181598716) BMI 45.0-49.9, adult (Z68.42) Active confirmed Problem Arthritis of left knee (5498144919499846) Arthritis of left knee (M17.12) Active confirmed Plan Of Treatment Pending Test Test Name Order Date MAMMOGRAM, SCREENING 04/27/2022 CBC (COMPLETE BLOOD COUNT) 12/01/2018 COMPREHENSIVE METABOLIC PANEL 12/01/2018 HEMOGLOBIN A1C 12/01/2018 LIPID PANEL 12/01/2018 Cologuard 04/27/2022 Insurance Providers Payer Name Payer Address Payer Phone Subscriber Number Group Number Insured Name Patient Relationship to Insured Coverage Start Date Coverage End Date Multiplan [address] [place] [phone] [id number] MATT MELLO Self - patient is the insured 2 Medications Administered Medication Instructions Date of Administration Dosage Notes MICC B12 INJECTION 04/27/2022 1 mL Lot #: [id number] MICC B12 INJECTION 07/27/2022 [id number] MICC B12 INJECTION 08/25/2022 [id number] MICC B12 INJECTION 04/20/2023 [facility] Medical (General) History Medical History History ICD Code diabetes mellitus depression arthritis Surgical History Surgery Date(Month/Year) ear surgery 2006, audiosclerosis
== END 2025-03-08 10:41 | disposition home or self-care (01) ==
LOC: HO.HMCFM 10:04
PROVIDERS: PCP Family Medicine; Visit Provider Family Medicine
DX: E11.65 Type 2 diabetes mellitus with hyperglycemia (principal); E66.01 Morbid (severe) obesity due to excess calories; Z68.42 Body mass index [BMI] 45.0-49.9, adult; R07.9 Chest pain, unspecified; G47.30 Sleep apnea, unspecified; L73.9 Follicular disorder, unspecified

== ENCOUNTER → 2025-03-08 10:03 | Outpatient (BNVA) | payer OTHER, SELFPAY | PROVIDERS: PCP Family Medicine; Visit Provider Family Medicine | DX: E11.65 Type 2 diabetes mellitus with hyperglycemia (principal); R07.9 Chest pain, unspecified; G47.30 Sleep apnea, unspecified; L73.9 Follicular disorder, unspecified; E66.01 Morbid (severe) obesity due to excess calories; Z68.42 Body mass index [BMI] 45.0-49.9, adult | CPT/HCPCS: 83036 ==

== ENCOUNTER 2025-04-03 08:57 | Outpatient (AMB) | payer OTHER, SELFPAY ==
--- OUTSIDE RECORDS SUMMARY | 2025-04-03 09:35 | XMS_ITS | Patient Health Record ---
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 Operator Name Role Phone adalberto Zimmerman Primary Care Provider ANGELIKA Kirkland Unavailable [phone] Allergies No Known Allergies Reason For Referral [...] Status W/U Status Risk Notes Problem Obesity (252901114) Other obesity (E66.8) Active confirmed Problem Hyperlipidemia (98626904) Hyperlipidemia, unspecified (E78.5) Active confirmed Problem Disorder due to type 2 diabetes mellitus (751868481) Type 2 diabetes mellitus with complication, unspecified whether roasterman insulin use (E11.8) Active confirmed Problem Vitamin D deficiency (04070360) Vitamin D deficiency (E55.9) Active confirmed Problem Body mass index 40+ - morbidly obese (570589688) BMI 40.0-44.9, adult (Z68.41) Active confirmed Problem Polycystic ovary syndrome (disorder) (224194932) PCOS (polycystic ovarian syndrome) (E28.2) Active confirmed Problem Body mass index 40+ - severely obese (252563011) BMI 45.0-49.9, adult (Z68.42) Active confirmed Problem Arthritis of left knee (6958389084827086) Arthritis of left knee (M17.12) Active confirmed [...] Date Multiplan [address] [place] [phone] [id number] MATT MELLO Self - patient is the insured 2 Medications Administered Medication Instructions Date of Administration Dosage Notes MICC B12 INJECTION 04/27/2022 1 mL Lot #: [id number] MICC B12 INJECTION 07/27/2022 [id number] MICC B12 INJECTION 08/25/2022 [id number] MICC B12 INJECTION 04/20/2023 [facility] Medical (General) History Medical History History ICD Code diabetes mellitus depression arthritis Surgical History Surgery Date(Month/Year) ear surgery 2006, audiosclerosis
--- NOTE | 2025-04-03 11:07 | MHC.AMNUTRGE ---
VS Expanded 04/03/25 11:11 04/03/25 11:16 Height 5 ft 2 in 5 ft 2 in Weight 244 lb 0.827 oz 243 lb 8 oz BMI 44.6 44.5 Intake Visit Reasons: Type 2 diabetes mellitus with hyperglycemia Allergies No Known Allergies Allergy (Verified 03/08/25 10:10) Nutrition Presentation Details: Pt presents for initial MNT for T2DM Pt reports having hx of PCOS food frequency fruits: 0-1/d ve/d dairy: 3/d fish : 0-1/wk snacks +++ Reports lacking meal routine with increased snacking Physical activity: ADL Pt requests glucometer - Pt was adivsed to contact insurance regarding preferred glucometer [id number].Jeor Equation Height: 5 ft 2 in Weight: 243 lb 8 oz Resting Metabolic Rate: 1685.56 Calculated Activity Level: Sedentary Calories Needed to Maintain Weight: 2021.67 Diagnosis Nutrition problem #1: altered nutrition labs As related to (etiology) #1: diagnosis As evidenced by (sign/symptom) #1: abnormal lab values and knowledge deficit of diet [facility] Surgical History History of ear surgery Family History Mother Breast cancer Gastrointestinal complaints Social History Household Members: Family Housing: House Alcohol intake: never Patient Tobacco Use Status: Never used Tobacco e-Cigarette/Vaping Use: Never Used Second Hand Smoke Exposure: No service: No Current occupational status: employed Current occupational exposures/hazards: Yes Cognitive needs: No Hearing needs: Yes Vision needs: Yes Assessment & Plan Assessment & Plan (1) Poorly controlled diabetes mellitus: Code(s): E11.65 - Type 2 diabetes mellitus with hyperglycemia Category: Medical Plan: current wt: 111 kg ( 04/14 ) est kcal needs as per MSJ: 2200 est protein needs as per 1 g/kg BW: 110 est fluid needs as per 30 ml/kg BW: 3300 Recommended fiber > 12 g /day and gradually increase up to 25-28 g /day or as tolerated Nutrition topics discussed : Reviewed (R), Pt verbalized understanding (V) , not applicable (N/A) R, : Healthy Plate Method Concept: R, : Carbohydrates: food sources of carbohydrates, relationship of carbohydrates to blood glucose, fatty liver GI health. Recommended total amount of carbohydrates per meals and snack. Differences between simple carbohydrates and complex carbohydrates R, : Lean protein foods including vegan , vegetarian sources of protein. Benefits of protein (including but not limited to healing, nutritional value , benefits in weight loss, glucose control R, V, N/A: Fats : Source of fats, benefits of fats. Difference between saturated and unsaturated fats. Saturated fats and its contribution to inflammation R, V, N/A: Fiber: food sources and role of fiber in the diet (including but not limited to its role as a prebiotic, benefits in constipation, role in IBS , role in glucose control and cholesterol level) R, V, N/A: Hydration: role of hydration and prevention of dehydration or over hydration. Foods and water content. R, V, N/A: Vitamins and Minerals in foods and supplements R, V, N/A: Interpreting food labels, including serving size, macronutrients, vitamins, minerals, allergens, ingredient list , % daily value Patient Instructions: Practice mindful eating choose whole grain foods Work on reducing portions, reducing total carb per meal to 45 g per meal following healthy plate method and 0-20 g as snack (2 /day or less ) Keep hydrated by having water with meals/snacks Coding Level of Care Code Nutr Indiv Intake (13764) Diagnoses Poorly controlled diabetes mellitus E11.65 Time Spent (min) 30
[2025-04-03 11:11] VITALS: BMI 44.6
[2025-04-03 11:16] VITALS: BMI 44.5
== END 2025-04-03 09:57 | disposition home or self-care (01) ==
LOC: HO.ENCR 08:58
PROVIDERS: PCP Family Medicine; Visit Provider Dietitian, Registered
DX: E11.65 Type 2 diabetes mellitus with hyperglycemia (principal)

== ENCOUNTER → 2025-04-03 08:57 | Outpatient (BNVA) | payer OTHER, SELFPAY | PROVIDERS: PCP Family Medicine; Visit Provider Dietitian, Registered | DX: E11.65 Type 2 diabetes mellitus with hyperglycemia (principal) | CPT/HCPCS: 97802 ==

== ENCOUNTER 2025-06-08 09:09 | Outpatient (AMB) | payer OTHER, SELFPAY ==
--- NOTE | 2025-06-08 09:12 | A.OFFPC_ITS ---
Vital Signs 06/08/25 09:22 Height 5 ft 2 in Weight 250 lb BMI 45.7 BP 122/74 Blood Pressure Location Rt brachial Position Sitting Respiration 16 Pulse 89 Pulse Source Pulse Oximeter Temp 97.4 F Temp Source Temporal Artery Scan Pulse Oximetry (%) 99 Oxygen Delivery Method Room Air Intake Visit Reasons: f/u diabetes, weight loss, chronic conditions Intake Note: Sophia presents in the office today for a follow up to diabetes, weight loss and other chronic conditions. 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: No Is last menstrual period known: Yes Last menstrual period: 03/07/25 Post menopausal: No Patient : No Allergies No Known Allergies Allergy (Verified 06/08/25 09:19) Medication List - Last Reconciled 06/08/25 by Jorge Alberto Condon MD blood sugar diagnostic (Accu-Chek Guide test strips) Test Blood Sugar 2 Times a Day As directed, 90 days blood-glucose meter (Accu-Chek Guide Me Glucose Meter) Check Blood Sugar 2 times a Day As directed, 999 days clotrimazole 1% 1 appl topical BID 2 weeks glipizide ER 10 mg PO QAM 90 days lancets (Accu-Chek Softclix Lancets) Check Blood Sugar 2 Times a Day As directed, 90 days meloxicam 15 mg PO DAILY 30 days metformin ER 500 mg PO BID 90 days omeprazole 20 mg PO DAILY 30 days sertraline 100 mg PO DAILY tirzepatide (weight loss) 7.5 mg (0.5 mL) subcut QWEEK 28 days Tobacco use date assessed: 06/08/25 Dental Screening Dental Screen Date: 06/08/25 Did you have a dental visit in the last 12 months?: Yes Did you have a dental problem in the last 6 months where you did not have access to dental care?: No Was dental information given to patient?: Patient has dentist HPI f/u diabetes, weight loss, chronic conditions HPI Details 50 y/o female presents to f/u diabetes, weight, chronic conditions. Last A1c 03/08/25 8.0%. A1c today 06/08/25 is 6.3%. She is on glipizide 10mg, metformin 500mg b.i.d, tirzepatide 7.5mg. Weight today 250lbs, BMI 45.7, increased from office visit in March. Pt notes she has not been exercising. Pt notes ear discomfort. Complaints of postnasal drip. Notes nasal steroids has not been working. [facility] Surgical History History of ear surgery Family History (Updated 06/08/25 @ 09:22 by Kisha Kuhn CMA) Mother Breast cancer Gastrointestinal complaints Maternal Grandfather Substance abuse Alcoholism Social History (Updated 06/08/25 @ 09:22 by Kisha Kuhn CMA) Household Members: Family Housing: House Alcohol intake: never Patient Tobacco Use Status: Never used Tobacco e-Cigarette/Vaping Use: Never Used Second Hand Smoke Exposure: No service: No Current occupational status: employed Current occupational exposures/hazards: Yes Cognitive needs: No Hearing needs: Yes Vision needs: Yes Female Reproductive History Menstrual Date of last menstrual period: 03/07/25 Questionnaire Thrive Questionnaire Date Thrive assessed: 07/05/24 I am a: Patient What is your living situation today?: I have a steady place to live Within the past 12 months, did the food you bought not last and you didn't have the money to get more?: Never true Within the past 12 months, did you worry whether your food would run out before you got money to buy more?: Never true Do you have trouble paying for medicines?: Yes Do you have trouble getting transportation to medical appointments?: No Do you have trouble paying your heating and electricity bill?: Yes Do you have trouble taking care of your child, family member or friend?: No Do you have trouble with day-to-day activities such as bathing, preparing meals, shopping, managing finances, etc.?: No Are you currently unemployed and looking for a job?: No Are you interested in more education?: No Currently or been in a relationship where the following occur: No concerns reported THRIVE Score: 1 JANIS-7 AMB Questionnaire JANIS-7 Date JANIS - 7 assessed: 08/20/21 Source: Developed by Drs. Nate Joseph, Pao Hewitt, Anatoliy Nash and colleagues, with an educational vale from [employer]. Review of Systems Const Denies chills, Denies fatigue, Denies fever(s), Denies headache(s) and Denies weakness ENT Denies dizziness, Denies headache(s) and Reports post nasal drip Card Denies dyspnea Resp Denies cough, Denies dyspnea, Denies wheezing and Denies other (shortness of breath) Musc Denies numbness and Denies tingling Neuro Denies dizziness, Denies headache(s), Denies numbness, Denies tingling and Denies weakness Psych Denies anxiety and Denies depression Endo Denies fatigue Aller/Immun Denies wheezing Physical exam (Primary Care) Vital Signs: Last Vital Signs Temp 97.4 F 06/08/25 09:22 Pulse 89 06/08/25 09:22 Resp 16 06/08/25 09:22 BP 122/74 06/08/25 09:22 Pulse Ox 99 06/08/25 09:22 Oxygen Delivery Method Room Air 06/08/25 09:22 BMI result Body Mass Index 45.7 Tobacco/Smoking Status: Tobacco use Status Tobacco use date assessed 06/08/25 06/08/25 09:27 Patient Tobacco Use Status Never used Tobacco 06/08/25 09:22 e-Cigarette/Vaping Use Never Used 06/08/25 09:22 Thrive Assessment: Date of Thrive Assessment Date Thrive assessed 07/05/24 06/08/25 09:15 Currently or been in a relationship where the following occur: No concerns reported Const General: well developed; No acute distress Nutritional Appearance: well nourished and obese morbidly obese Orientation/consciousness: patient oriented x3 HENMT Head: Yes normocephalic and Yes atraumatic Eyes General: appearance normal, both eyes and all related structures Pupils: Equal, round and reactive pupils present EOM: EOMs intact bilaterally Resp Effort & Inspection: normal respiratory effort Auscultation: clear to auscultation bilaterally Cardio Rate: regular rate Rhythm: regular rhythm Heart sounds: S1 normal heart sound present, S2 normal heart sound present, no gallops, no murmurs and no rubs Neuro General: patient oriented x3 and gait normal Cranial nerves: Yes Equal, round and reactive pupils present Psych Affect: normal affect Results AMB Hemoglobin A1c AMB Hemoglobin A1c 6.3 % Last Edit by Kisha Kuhn CMA on 06/08/25 09:28 Results Reviewed Results Reviewed: Laboratory Last Values Hgb A1c (Clinic) 6.3 % (4.0-6.0) H 06/08/25 09:27 Coding Level of Care Code Est Pt Level 4 (09395) Diagnoses Diabetes type 2, controlled E11.9 Morbid obesity E66.01 Swimmer's ear H60.339 Post-nasal drip R09.82 Radiculitis of left cervical region M54.12 Pain of left upper extremity M79.602 Left shoulder pain M25.512 Assessment & Plan Assessment & Plan (1) Diabetes type 2, controlled: Code(s): E11.9 - Type 2 diabetes mellitus without complications Category: Medical Plan: A1c now shows good control at 6.3% Continue metformin and glipizide Will increase tirzepatide for better weight loss - see below Patient has eye exam scheduled (2) Morbid obesity: Code(s): E66.01 - Morbid (severe) obesity due to excess calories Category: Medical Plan: Patient had lost weight at previous visits but has gained much of it back. Has seen computer applications developer She would like to increase tirzepatide Will increase from 7.5 mg weekly to 10 mg weekly We also discussed adding exercise and continuing diet (3) Swimmer's ear: Code(s): H60.339 - Swimmer's ear, unspecified ear Category: Medical Plan: Giving her a script for eardrops (4) Post-nasal drip: Code(s): R09.82 - Postnasal drip Category: Medical Plan: She can use Flonase OTC Continue daytime antihistamine Environmental changes (5) Radiculitis of left cervical region: Code(s): M54.12 - Radiculopathy, cervical region (6) Pain of left upper extremity: Code(s): M79.602 - Pain in left arm (7) Left shoulder pain: Code(s): M25.512 - Pain in left shoulder Plan Left arm and shoulder discomfort which appears to be referred radicular pain from shoulder neck Start physical therapy Ice/heat Orders: Orders AMB Hemoglobin A1c Today E11.9 - Type 2 diabetes mellitus without complications PT Evaluation and Treatment Today M25.512 - Pain in left shoulder, M54.12 - Radiculopathy, cervical region, M79.602 - Pain in left arm Medications: New ciprofloxacin-dexamethasone 0.3-0.1 % 4 drps otic (ears) BID 7.5 mL 0RF 7 days Changed From sertraline 150 mg (1.5 x 100 mg) PO DAILY 30 days 45 tabs 3RF To sertraline 100 mg PO DAILY From tirzepatide (weight loss) for 4 weeks 7.5 mg (0.5 mL) subcut QWEEK 28 days 2 mL 4RF To tirzepatide (weight loss) for 4 weeks 10 mg (0.5 mL) subcut QWEEK 2 mL 4RF 28 days
[2025-06-08 09:22] VITALS: BP 122/74; PULSE 89; RESP 16; TEMP 36.3; O2SAT 99; BMI 45.7
--- OUTSIDE RECORDS SUMMARY | 2025-06-08 09:39 | XMS_ITS | Patient Health Record ---
Author Organization [facility] [address] Address [address] [place] [address] Care Team Providers Care A/C Technician Name Role Phone adalberto Zimmerman Primary Care Provider ANGELIKA Kirkland Unavailable [phone] Allergies No Known Allergies Reason For Referral No Information Medications Medication SIG (Take, Route, Frequency, Duration) Notes Start Date End Date Status metFORMIN HCl ER 500 MG Tablet Extended Release 24 Hour 1 tablet with evening meal Orally Once a day; Duration: 30 day(s) Active Mounjaro 5 MG/0.5ML Solution Pen-injector 5 mg Subcutaneous weekly; Duration: 30 days Active Meloxicam 15 MG Tablet TAKE 1 TABLET BY MOUTH EVERY DAY FOR 90 DAYS; Duration: 90 Active Sertraline HCl 100 MG Tablet 1 tablet Orally Once a day; Duration: 90 days Active Mounjaro 2.5 MG/0.5ML Solution Pen-injector INJECT 2.5 MG SUBCUTANEOUSLY WEEKLY; Duration: 30 Active Vitamin D 50 MCG (2000 UT) Tablet 1 tablet Orally Once a day refill needed Active Clotrimazole-Betamet hasone 1-0.05 % Cream APPLY DAILY TO SKIN TO AFFECTED AREA TWICE A DAY FOR 2 WEEKS; Duration: 14 Active Social History Tobacco Use: Social History Observation Description Date Details (start date - stop date) Never Smoker NA - NA Social History Tobacco Use: Social Info Question Answer Notes Tobacco Use/Smoking Are you a nonsmoker Section Notes: alcohol: [...] Status W/U Status Risk Notes Problem Obesity (024313288) Other obesity (E66.8) Active confirmed Problem Hyperlipidemia (49297632) Hyperlipidemia, unspecified (E78.5) Active confirmed Problem Disorder due to type 2 diabetes mellitus (924308250) Type 2 diabetes mellitus with complication, unspecified whether mcc insulin use (E11.8) Active confirmed Problem Vitamin D deficiency (80617108) Vitamin D deficiency (E55.9) Active confirmed Problem Body mass index 40+ - morbidly obese (511773354) BMI 40.0-44.9, adult (Z68.41) Active confirmed Problem Polycystic ovary syndrome (disorder) (998809765) PCOS (polycystic ovarian syndrome) (E28.2) Active confirmed Problem Body mass index 40+ - severely obese (649945827) BMI 45.0-49.9, adult (Z68.42) Active confirmed Problem Arthritis of left knee (2597305074369402) Arthritis of left knee (M17.12) Active confirmed [...] Date Multiplan [address] [place] [address] [id number] MATT MELLO Self - patient is the insured 2 Medications Administered Medication Instructions Date of Administration Dosage Notes MICC B12 INJECTION 04/27/2022 1 mL Lot #: [id number] MICC B12 INJECTION 07/27/2022 [id number] MICC B12 INJECTION 08/25/2022 [id number] MICC B12 INJECTION 04/20/2023 [facility] Medical (General) History Medical History History ICD Code diabetes mellitus depression arthritis Surgical History Surgery Date(Month/Year) ear surgery 2007, audiosclerosis
== END 2025-06-08 09:50 | disposition home or self-care (01) ==
LOC: HO.HMCFM 09:09
PROVIDERS: PCP Family Medicine; Visit Provider Family Medicine
DX: E11.9 Type 2 diabetes mellitus without complications (principal); E66.01 Morbid (severe) obesity due to excess calories; Z68.42 Body mass index [BMI] 45.0-49.9, adult; H60.333 Swimmer's ear, bilateral; R09.82 Postnasal drip; M54.12 Radiculopathy, cervical region; M79.602 Pain in left arm; M25.512 Pain in left shoulder

== ENCOUNTER → 2025-06-08 09:09 | Outpatient (BNVA) | payer OTHER, SELFPAY | PROVIDERS: PCP Family Medicine; Visit Provider Family Medicine | DX: E11.9 Type 2 diabetes mellitus without complications (principal) | CPT/HCPCS: 83036 ==